=== PATIENT | male | born 1945 | race Caucasian/White ===

== ENCOUNTER → 2022-09-12 11:20 | Outpatient (BNVA) | payer MEDICARE, SELFPAY | PROVIDERS: PCP Internal Medicine; Visit Provider Urology | DX: Z13.89 Encounter for screening for other disorder (principal) ==

== ENCOUNTER → 2022-12-13 12:55 | Outpatient (BNVA) | payer MEDICARE, SELFPAY | PROVIDERS: PCP Internal Medicine; Visit Provider Urology | DX: N40.1 Benign prostatic hyperplasia with lower urinary tract symptoms (principal); R97.20 Elevated prostate specific antigen [PSA] | CPT/HCPCS: Q3014 ==

== ENCOUNTER 2023-06-13 11:50 | Outpatient (AMB) | payer MEDICARE, SELFPAY ==
--- NOTE | 2023-06-13 11:54 | A.OFFVIS_ITS ---
Intake Intake Visit Reasons: 6m/PSA(set) Intake Note: Patient is Present for Follow Up PSA/PVR Urology Medication: Finasteride Antibiotic Allergies: Erythromycin Blood Thinners:Xarelto Pharmacy: [place] PVR: 396 Allergies Alpha 1 Pernell- Quinazolines Adverse Reaction (Mild, Verified 06/13/23 12:00) Migraine Beta-Blockers (Beta-Adrenergic Bloc Adverse Reaction (Mild, Verified 06/13/23 12:00) Migraine tamsulosin Adverse Reaction (Unknown, Verified 06/13/23 12:00) headache Erythromycin Allergy (Unknown, Uncoded 06/13/23 12:00) Unknown Medication List - Last Reconciled 06/13/23 by Carlos Mishra MD atorvastatin 40 mg PO DAILY diltiazem HCl 240 mg PO DAILY finasteride 5 mg PO DAILY 90 days ketoconazole 2% topical Q OTHER DAY levothyroxine 50 mcg PO DAILY rivaroxaban (Xarelto) 20 mg PO DAILY sennosides (senna) 17.2 mg PO DAILY PRN sulfamethoxazole-trimethoprim 800-160 mg (Bactrim DS) 1 tab PO bid 5 days HPI HPI Comments History of Present Illness Details Josh is a pleasant male. He is a patient of Dr. To. He is seen for the following urologic conditions - lower urinary tract symptoms - elevated PSA PVR over 300 UA today positive nitrates, positive leuks - will treat for UTI Needs follow-up with cystoscopy Significant PSA dropped with finasteride Finasteride M.W.F Six month follow-up PSA Elevated PSA and lower urinary tract symptoms Prior TURP with good effect for urinary symptoms Previously had weakness of stream incomplete emptying Laboratories - 03/31 7.3, 11/30 2.8, 06/02 2.3 Previously PSA run in 4-6 range [facility] Medical History (Updated 06/13/23 @ 12:22 by Carlos Mishra MD) Elevated PSA BPH loc w urin obs/LUTS Incomplete emptying of bladder Chronic UTI (urinary tract infection) Infective urethritis Left lower quadrant pain Right lower quadrant pain Review of Systems Const Denies chills and Denies fever(s) Card Reports no additional complaints and Denies syncope Resp Denies cough GI Denies abdominal pain and Denies heartburn Reports as per HPI and Denies change in libido Neuro Denies syncope Psych Denies change in libido Endo Denies change in libido Physical Exam Const General: cooperative, healthy appearing, comfortable and no acute distress Orientation/consciousness: patient oriented x3 HEENT Face and sinus: Yes normal facial exam Mouth: moist mucous membranes Neck Neck: Yes normal visual inspection, Yes full ROM and Yes trachea midline Chest Chest palpation & inspection: normal inspection of the chest Resp Effort & Inspection: normal respiratory effort, able to speak in complete sentences and no respiratory distress GI Inspection: Yes normal to inspection Back/Spine/Pelvis Cervical Spine: normal cervical lordosis Thoracic/Lumbar Spine: thoracic and lumbar spine normal to inspection Skin General skin exam: no rashes or lesions noted Neuro General: patient oriented x3, gait normal, tone normal and moves all extremities Extrem General: Yes normal to inspection and Yes capillary refill normal Office Procedures Post Void Residual Post Residual Void Post Void Residual (PVR): 396 [id number]-Vuia Void Residual by ultrasound Results AMB Urinalysis, Automated UA Leukoctes 15 Bienvenido/uL Last Edit by Stefany Mendiola [facility] on 06/13/23 12:15 UA Nitrite Positive Last Edit by Stefany Mendiola [facility] on 06/13/23 12:15 UA Urobilinogen 0.2 mg/dL Last Edit by Stefany Mendiola [facility] on 06/13/23 12:1 5 UA Protein 0 mg/dL Last Edit by Stefany Mendiola [facility] on 06/13/23 12:15 UA pH 6.5 Last Edit by Stefany Mendiola [facility] on 06/13/23 12:15 UA Blood 0 Rishi/uL Last Edit by Stefany Mendiola [facility] on 06/13/23 12:15 UA Specific [place] 1.015 Last Edit by Stefany Mendiola [facility] on 06/13/23 12: 15 UA Ketone Negative Last Edit by Stefany Mendiola [facility] on 06/13/23 12:15 UA Bilirubin 0 mg/dL Last Edit by Stefany Mendiola [facility] on 06/13/23 12:15 UA Glucose 0 mg/dL Last Edit by Stefany Mendiola [facility] on 06/13/23 12:15 Assessment & Plan Assessment & Plan (1) Chronic UTI (urinary tract infection): Code(s): N39.0 - Urinary tract infection, site not specified (2) BPH loc w urin obs/LUTS: Code(s): N40.1 - Benign prostatic hyperplasia with lower urinary tract symptoms (3) Elevated PSA: Code(s): R97.20 - Elevated prostate specific antigen [PSA] Plan Check cystoscopy Orders: Orders AMB Post Void Residual by ultrasound Today N40.1 - Benign prostatic hyperplasia with lower urinary tract symptoms Urine Culture Today N39.0 - Urinary tract infection, site not specified AMB Urinalysis Automated Today Z13.9 - Encounter for screening, unspecified Medications: New sulfamethoxazole-trimethoprim 800-160 mg (Bactrim DS) 1 tab PO bid 10 tabs 0RF 5 days N39.0 - Urinary tract infection, site not specified Patient Instructions: Imaging studies, laboratory and physical exam results were discussed and reviewed in detail. No major barriers to patient understanding were identified. An opportunity to ask questions regarding the treatment plan was provided. All questions were answered. The patient expressed understanding and agreement with the above treatment plan. The patient is aware they should contact our office by phone for worsening of their current condition or the appearance of new urologic symptoms. Compliance is encouraged with any medications and followup testing that is ordered. It is a privilege to participate in the urologic care of your patient. If you have any questions or concerns regarding treatment for the above conditions, or other urologic issues, please do not hesitate to contact me. The office telephone contact is [phone]. This note is constructed using voice recognition software. While every effort has been made to ensure accuracy transcription coordinator errors may have been included. Yours sincerely, Dr Carlos Mishra MD, [facility] - Urology Providers of Expert, Compassionate Care for the Genitourinary System Coding Level of Care Code Est Pt Level 4 (53932) Diagnoses Chronic UTI (urinary tract infection) N39.0 BPH loc w urin obs/LUTS N40.1 Elevated PSA R97.20 CPT Codes Post Residual Void - PVR CPT Code: 96077-Zjfu Void Residual by ultrasound ([id number])
== END 2023-06-13 12:24 | disposition home or self-care (01) ==
PROVIDERS: PCP Internal Medicine; Visit Provider Urology
DX: N39.0 Urinary tract infection, site not specified (principal); N40.1 Benign prostatic hyperplasia with lower urinary tract symptoms; R97.20 Elevated prostate specific antigen [PSA]; Z13.9 Encounter for screening, unspecified
CPT/HCPCS: 99214

== ENCOUNTER 2023-06-13 11:50 | Outpatient (REF) | payer MEDICARE, SELFPAY | END 2023-06-13 11:51 | disposition home or self-care (01) | LOC: HO.LAB 11:50 | PROVIDERS: Visit Provider Urology | DX: N39.0 Urinary tract infection, site not specified (principal); N40.1 Benign prostatic hyperplasia with lower urinary tract symptoms; N13.8 Other obstructive and reflux uropathy; R97.20 Elevated prostate specific antigen [PSA] | CPT/HCPCS: 51798; 81003; 87086; 99212 ==

== ENCOUNTER 2023-07-31 11:04 | Outpatient (REF) | payer MEDICARE, SELFPAY | END 2023-07-31 11:05 | disposition home or self-care (01) | LOC: HO.LAB 11:04 | PROVIDERS: PCP Internal Medicine; Visit Provider Urology | DX: N39.0 Urinary tract infection, site not specified (principal); R33.9 Retention of urine, unspecified; N40.1 Benign prostatic hyperplasia with lower urinary tract symptoms | CPT/HCPCS: 52000; 81003; 87086; 87088; 87186; 99212 ==

== ENCOUNTER 2023-07-31 11:04 | Outpatient (AMB) | payer MEDICARE, SELFPAY ==
--- NOTE | 2023-07-31 11:10 | MHC.OFFVIS ---
Intake Intake Visit Reasons: cysto Intake Note: Patient is Present for Cystoscopy Urology Med: Finasteride, Antibiotic Allergy: Erythromycin Blood Thinner: Xarelto URO- G Disposable Cystoscope lot: [id number] exp: 02/21/25 Allergies Alpha 1 Pernell- Quinazolines Adverse Reaction (Mild, Verified 06/13/23 12:00) Migraine Beta-Blockers (Beta-Adrenergic Bloc Adverse Reaction (Mild, Verified 06/13/23 12:00) Migraine tamsulosin Adverse Reaction (Unknown, Verified 06/13/23 12:00) headache Erythromycin Allergy (Unknown, Uncoded 06/13/23 12:00) Unknown HPI HPI Comments History of Present Illness Details Josh is a pleasant male. He is a patient of Dr. To. He is seen for the following urologic conditions - lower urinary tract symptoms - elevated PSA Maintaining high PVR with chronic infection Cystoscopy today with significant regrowth on right side prostate Dilated bladder Recommend repeat GreenLight. Will need clearance from Dr To regarding Xarelto. Significant PSA dropped with finasteride Finasteride M.W.F Elevated PSA and lower urinary tract symptoms Prior TURP with good effect for urinary symptoms Previously had weakness of stream incomplete emptying Laboratories - 03/31 7.3, 11/30 2.8, 06/02 2.3 Previously PSA run in 4-6 range [facility] Medical History (Updated 07/31/23 @ 12:07 by Carlos Mishra MD) Elevated PSA BPH loc w urin obs/LUTS Incomplete emptying of bladder Chronic UTI (urinary tract infection) Infective urethritis Left lower quadrant pain Right lower quadrant pain Review of Systems Const Denies chills and Denies fever(s) Card Reports no additional complaints and Denies syncope Resp Denies cough GI Denies abdominal pain and Denies heartburn Reports as per HPI and Denies change in libido Neuro Denies syncope Psych Denies change in libido Endo Denies change in libido Physical Exam Const General: cooperative, healthy appearing, comfortable and no acute distress Orientation/consciousness: patient oriented x3 HEENT Face and sinus: Yes normal facial exam Mouth: moist mucous membranes Neck Neck: Yes normal visual inspection, Yes full ROM and Yes trachea midline Chest Chest palpation & inspection: normal inspection of the chest Resp Effort & Inspection: normal respiratory effort, able to speak in complete sentences and no respiratory distress GI Inspection: Yes normal to inspection Back/Spine/Pelvis Cervical Spine: normal cervical lordosis Thoracic/Lumbar Spine: thoracic and lumbar spine normal to inspection Skin General skin exam: no rashes or lesions noted Neuro General: patient oriented x3, gait normal, tone normal and moves all extremities Extrem General: Yes normal to inspection and Yes capillary refill normal Office Procedures Cystoscopy Consent Discussed risk and benefit or proposed procedure with the patient. Information consent for procedure given to the patient. Discussed technical aspects, risks, benefits and alternatives in full. Addressed all of the patient's questions and concerns regarding the procedure. The patient demonstrated knowledge and understanding. They wish to proceed with this procedure. Preparation The patient was prepped in the usual manner. A monument letterer was present and in the room. Genitalia was prepped with betadine solution in a sterile manner. Lidocaine Jelly 2% was placed into the urethra and 16Fr flexible Olympus cystoscope was inserted into the meatus after adequate lubrication. Cystoscopy Consent Discussed risk and benefit or proposed procedure with the patient. Information consent for procedure given to the patient. Discussed technical aspects, risks, benefits and alternatives in full. Addressed all of the patient's questions and concerns regarding the procedure. The patient demonstrated knowledge and understanding. They wish to proceed with this procedure. Preparation The patient was prepped in the usual manner. A monument letterer was present and in the room. Genitalia was prepped with betadine solution in a sterile manner. Lidocaine Jelly 2% was placed into the urethra and 16Fr flexible Olympus cystoscope was inserted into the meatus after adequate lubrication. Procedure Meatus circumcised Urethra anterior posterior urethra normal Prostatic Urethra regrowth right lobe Bladder examination with retroflexion of cystoscope Bladder Orifices normal shape and position Bladder Capacity medium Trabeculations - Cellule Formation - Diverticulum Formation - Mucosal Erythema - Bladder Tumor - 85412-Rivxiaoxam DISPOSABLE SCOPE URO-G FLEXIBLE SCOPE Procedure code (CPT) selection complete Office Meds lidocaine HCl 2 % mucosal jelly in applicator Performing Provider: Carlos Mishra MD Performing Location: [facility] Administered by: SUKHWINDER Mora on 07/31/23 11:29 Dose Route Admin Location Dispensed Lot Number Expiration Date ND Manager Medicare Marketing 10 mL intra-urethral 10 mL nitrofurantoin monohydrate/macrocrystals 100 mg capsule Performing Provider: Carlos Mishra MD Performing Location: [facility] Administered by: SUKHWINDER Mora on 07/31/23 11:29 Dose Route Admin Location Dispensed Lot Number Expiration Date NDC Manager Medicare Marketing 100 mg PO 1 cap naproxen 500 mg tablet Performing Provider: Carlos Mishra MD Performing [facility] Administered by: SUKHWINDER Mora on 07/31/23 11:29 Dose Route Admin Location Dispensed Lot Number Expiration Date NDC Manager Medicare Marketing 500 mg PO 1 tab Results AMB Urinalysis, Automated UA Leukoctes 0 Bienvenido/uL Last Edit by SUKHWINDER Mora on 07/31/23 11:24 UA Nitrite Positive Last Edit by SUKHWINDER Mora on 07/31/23 11:24 UA Urobilinogen 0.2 mg/dL Last Edit by SUKHWINDER Mora on 07/31/23 11:24 UA Protein 0 mg/dL Last Edit by SUKHWINDER Mora on 07/31/23 11:24 UA pH 6.0 Last Edit by SUKHWINDER Mora on 07/31/23 11:24 UA Blood 0 Rishi/uL Last Edit by Stefany Mendiola Rajinder on 07/31/23 11:24 UA Specific [place] 1.015 Last Edit by SUKHWINDER Mora on 07/31/23 11:24 UA Ketone Negative Last Edit by SUKHWINDER Mora on 07/31/23 11:24 UA Bilirubin 0 mg/dL Last Edit by SUKHWINDER Mora on 07/31/23 11:24 UA Glucose 0 mg/dL Last Edit by SUKHWINDER Mora on 07/31/23 11:24 Results Reviewed Results Reviewed: Laboratory Last Values Urine pH (Auto) 6.0 07/31/23 11:12 Specific [place] (Auto) 1.015 07/31/23 11:12 Urine Protein (Auto) 0 mg/dL 07/31/23 11:12 Glucose (UA)(Auto) 0 mg/dL 07/31/23 11:12 Urine Ketones (Auto) Negative 07/31/23 11:12 Urine Blood (Auto) 0 Rishi/uL 07/31/23 11:12 Urine Nitrite (Auto) Positive 07/31/23 11:12 Urine Bilirubin (Auto) 0 mg/dL 07/31/23 11:12 Urine Urobilinogen (Auto) 0.2 mg/dL 07/31/23 11:12 Leukocyte Esterase (Auto) 0 Bienvenido/uL 07/31/23 11:12 Assessment & Plan Assessment & Plan (1) BPH loc w urin obs/LUTS: Code(s): N40.1 - Benign prostatic hyperplasia with lower urinary tract symptoms (2) Incomplete emptying of bladder: Code(s): R33.9 - Retention of urine, unspecified Plan Risks, benefits and alternatives to therapy were discussed. These include but are not limited to infection, bleeding, damage to local organs and tissues, need for further interventions. Anesthetic risks regarding cardiac arrhythmia, blood clots, and potential mortality were discussed. The patient understands the typical recovery time and the outpatient nature of the procedure. After consideration of these risks the patient gives full informed consent and they wish to move ahead with the procedure. Diagnosis: Recurrent BPH Procedure: GreenLight laser Side: Antibiotics: Levaquin 500 mg Anesthesia: LMA Estimated Time: 60 minutes Clearance Needed: PAT Protocol Cardiac yes Pulmonary - - check with primary care Dr To. On Xarelto. May need Lovenox bridge Special Equipment: GreenLight laser Reps: Agility Orders: Orders AMB Urinalysis Automated 07/31/23 Z13.9 - Encounter for screening, unspecified AMB Cystoscopy 07/31/23 N40.1 - Benign prostatic hyperplasia with lower urinary tract symptoms Urine Culture 07/31/23 N39.0 - Urinary tract infection, site not specified AMB Cystoscopy 07/31/23 R33.9 - Retention of urine, unspecified Medications: New lidocaine HCl 2% 10 mL intra-urethral ONCE 10 mL 0RF R33.9 - Retention of urine, unspecified Discontinued sulfamethoxazole-trimethoprim 800-160 mg Discontinued Reason: Patient Completed Course 1 tab PO bid 5 days 10 tabs 0RF N39.0 - Urinary tract infection, site not specified Patient Instructions: Imaging studies, laboratory and physical exam results were discussed and reviewed in detail. No major barriers to patient understanding were identified. An opportunity to ask questions regarding the treatment plan was provided. All questions were answered. The patient expressed understanding and agreement with the above treatment plan. The patient is aware they should contact our office by phone for worsening of their current condition or the appearance of new urologic symptoms. Compliance is encouraged with any medications and followup testing that is ordered. It is a privilege to participate in the urologic care of your patient. If you have any questions or concerns regarding treatment for the above conditions, or other urologic issues, please do not hesitate to contact me. The office telephone contact is [phone]. This note is constructed using voice recognition software. While every effort has been made to ensure accuracy ibm bpm developer errors may have been included. Yours sincerely, Dr Carlos Mishra MD, [facility] - Urology Providers of Expert, Compassionate Care for the Genitourinary System Coding Level of Care Code Est Pt Level 4 (48550) Diagnoses BPH loc w urin obs/LUTS N40.1 Incomplete emptying of bladder R33.9 CPT Codes Cystoscopy - CPT: 12655-Hxbonqqvmr ([id number])
== END 2023-07-31 12:06 | disposition home or self-care (01) ==
PROVIDERS: PCP Internal Medicine; Visit Provider Urology
DX: N40.1 Benign prostatic hyperplasia with lower urinary tract symptoms (principal); Z13.9 Encounter for screening, unspecified
CPT/HCPCS: 52000; 99214

== ENCOUNTER 2023-10-05 13:43 | Outpatient (AMB) | payer MEDICARE, SELFPAY ==
--- NOTE | 2023-10-05 13:44 | A.OFFVIS_ITS ---
Intake Intake Visit Reasons: H&P Greenlight Intake Note: Patient is Present for Telephone Follow Up H&P GreenLight Urology Med: Finasteride Antibiotic Allergy:Erythromycin Blood Thinner: Xarelto Allergies erythromycin base Allergy (Unknown, Verified 10/15/23 11:20) Unknown Alpha 1 Pernell- Quinazolines Adverse Reaction (Mild, Verified 10/15/23 11:20) Migraine Beta-Blockers (Beta-Adrenergic Bloc Adverse Reaction (Mild, Verified 10/15/23 11:20) Migraine tamsulosin Adverse Reaction (Unknown, Verified 10/15/23 11:20) headache HPI HPI Comments History of Present Illness Details Josh is a pleasant male. He is a patient of Dr. To. He is seen for the following urologic conditions - lower urinary tract symptoms - elevated PSA Telemedicine Evaluation 15 min Consultation Doximity Bert Video attempted Has clinic from Dr. To regarding use of anticoagulation Will use bridging Questions answered regarding procedures Maintaining high PVR with chronic infection Cystoscopy with significant regrowth on right side prostate Dilated bladder Recommend repeat GreenLight. Significant PSA dropped with finasteride Finasteride M,W,F Elevated PSA and lower urinary tract symptoms Prior TURP with good effect for urinary symptoms Previously had weakness of stream incomplete emptying Laboratories - 03/31 7.3, 11/30 2.8, 06/02 2.3 Previously PSA run in 4-6 range PFSH Medical History Mitral regurgitation Myocardial infarction GERD (gastroesophageal reflux disease) Arthritis Asthma Head and neck cancer CVA (cerebral vascular accident) On anticoagulant therapy Atrial fibrillation Elevated cholesterol HTN (hypertension) Elevated PSA BPH loc w urin obs/LUTS Incomplete emptying of bladder Chronic UTI (urinary tract infection) Infective urethritis Surgical History Hx of transurethral resection of prostate Hx of heart artery stent H/O colonoscopy Hx of mitral valve repair Social History Comment: stinging Patient Tobacco Use Status: Never used Tobacco Review of Systems Const All systems reviewed & are unremarkable except as noted in HPI and below Reports no additional complaints Resp Reports no additional complaints GI Reports no additional complaints Reports as per HPI Musc Reports no additional complaints Physical Exam Telemedicine evaluation Appropriate responses Regular breathing rate and rhythm HEENT Head: Yes normal to inspection Ears: hearing grossly normal bilaterally Eyes General: appearance normal, both eyes and all related structures Neck Neck: Yes normal visual inspection Chest Chest palpation & inspection: normal inspection of the chest Resp Effort & Inspection: normal respiratory effort and able to speak in complete sentences Assessment & Plan Assessment & Plan (1) Incomplete emptying of bladder: Code(s): R33.9 - Retention of urine, unspecified (2) BPH loc w urin obs/LUTS: Code(s): N40.1 - Benign prostatic hyperplasia with lower urinary tract symptoms (3) Elevated PSA: Code(s): R97.20 - Elevated prostate specific antigen [PSA] Plan Planned procedure Patient Instructions: Imaging studies, laboratory and physical exam results were discussed and reviewed in detail. No major barriers to patient understanding were identified. An opportunity to ask questions regarding the treatment plan was provided. All questions were answered. The patient expressed understanding and agreement with the above treatment plan. The patient is aware they should contact our office by phone for worsening of their current condition or the appearance of new urologic symptoms. Compliance is encouraged with any medications and followup testing that is ordered. It is a privilege to participate in the urologic care of your patient. If you have any questions or concerns regarding treatment for the above conditions, or other urologic issues, please do not hesitate to contact me. The office telephone contact is [phone]. This note is constructed using voice recognition software. While every effort has been made to ensure accuracy installation service representative errors may have been included. Yours sincerely, Dr Carlos Mishra MD, [facility] - Urology Providers of Expert, Compassionate Care for the Genitourinary System Telehealth Telehealth Location of provider rendering services: practice address Location of patient: address on file Patient Identification confirmed using: Name, : Yes Telehealth method: video Patient verbally consented to treatment: Yes Patient verbally consented to billing insurance company: Yes Patient informed of any privacy concerns related to visit: Yes Coding Level of Care Code Tele Est Pt Level 3 (97155) Diagnoses Incomplete emptying of bladder R33.9 BPH loc w urin obs/LUTS N40.1 Elevated PSA R97.20
== END 2023-10-05 14:02 | disposition home or self-care (01) ==
LOC: HO.HUSH 13:43
PROVIDERS: PCP Internal Medicine; Visit Provider Urology
DX: R33.9 Retention of urine, unspecified (principal); N40.1 Benign prostatic hyperplasia with lower urinary tract symptoms; R97.20 Elevated prostate specific antigen [PSA]
CPT/HCPCS: 99213

== ENCOUNTER → 2023-10-05 13:43 | Outpatient (BNVA) | payer MEDICARE, SELFPAY | PROVIDERS: PCP Internal Medicine; Visit Provider Urology ==

== ENCOUNTER 2023-10-15 10:58 | Day surgery (SDC) | payer MEDICARE, SELFPAY ==
[2023-10-11 13:33] VITALS: BMI 25.3
--- NOTE | 2023-10-12 10:55 | HO.ANESPROP2 ---
Documented by User: Brina Hopkins NP 10/12/23 11:44 HPI - Anesthesia Eval Consult details Narrative: 78yo M for Laser Ablation Prostate w/[facility] Card[facility] cleared. Last office visit 08/2023 Xarelto for afib. Lovenox bridge. CAD with NC s/p stent. 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 Some vocal cord paralysis PMFSH Active Problems Active Problems: All Active Problems (Updated 10/11/23 @ 11:50 by Anne Ch RN) Incomplete emptying of bladder (Acute) Chronic UTI (urinary tract infection) (Acute) BPH loc w urin obs/LUTS (Acute) Elevated PSA (Acute) Past Medical History Medical History Mitral regurgitation Myocardial infarction GERD (gastroesophageal reflux disease) Arthritis Asthma Head and neck cancer CVA (cerebral vascular accident) On anticoagulant therapy Atrial fibrillation Elevated cholesterol HTN (hypertension) Elevated PSA BPH loc w urin obs/LUTS Incomplete emptying of bladder Chronic UTI (urinary tract infection) Infective urethritis Surgical History Surgical History Hx of transurethral resection of prostate Hx of heart artery stent H/O colonoscopy Hx of mitral valve repair Social History Social History Patient Tobacco Use Status: Never used Tobacco Use of substances other than those prescribed or required for medical reasons: No Are you DNR?: No Advance Directives: No Advance Directives Information Provided: Yes Meds Allergies Allergy/AdvReac Type Severity Reaction Status Date / Time erythromycin base Allergy Unknown Unknown Verified 10/15/23 11:20 Alpha 1 Pernell- Quinazolines AdvReac Mild Migraine Verified 10/15/23 11:20 Beta-Blockers AdvReac Mild Migraine Verified 10/15/23 11:20 (Beta-Adrenergic Bloc tamsulosin AdvReac Unknown headache Verified 10/15/23 11:20 Home Medications Medication Instructions Recorded Confirmed Last Taken Type atorvastatin 40 mg tablet 40 mg PO DAILY 09/12/22 10/11/23 Unknown History diltiazem HCl 240 mg 240 mg PO DAILY 09/12/22 10/11/23 Unknown History capsule,extended release 24 hr rivaroxaban 20 mg tablet (Xarelto) 20 mg PO DAILY 09/12/22 10/11/23 Unknown History levothyroxine 50 mcg capsule 50 mcg PO DAILY 12/13/22 10/11/23 Unknown History ketoconazole 2 % shampoo 1 appl topical Q OTHER DAY 06/13/23 10/11/23 Unknown History Exam Height,Weight and Vital Signs: Height 6 ft 2 in Weight 89.358 kg Pertinent Lab Results Pertinent Lab Results: CBC and CMP 04/2023 from outside facility WNL Narrative Narrative: EKG 08/2023 afib per cardiology note ECHO 09/2022 1. Nml LV function 2. Overall LV systolic function is low-nml with EF 50-55% 3. Cannot assess diastolic function d/t afib 4. Paradoxical septal motion c/w post-op status 5. LA severely dilated 6. No evidence of aortic stenosis 7. Mil-mod MR present 8. Evidence of mitral valve repair 9. No evidence of pulmo htn 10. 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 No change c/w 05/2018 Assessment and Plan Assessment Anesthesia Assessment: Chart Reviewed Documented by User: Nesha Herbert MD 10/15/23 14:05 HPI - Anesthesia Eval Consult details Narrative: 78yo M for Laser Ablation Prostate w/[facility] Cardiac cleared. Last office visit 08/2023 Xarelto for afib. Lovenox bridge. CAD with NC s/p stent. 2015. Never any chest pain. 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 Some vocal cord paralysis PMFSH Active Problems Active Problems: All Active Problems (Updated 10/15/23 @ 12:39 by Nesah Herbert MD) Incomplete emptying of bladder (Acute) Chronic UTI (urinary tract infection) (Acute) BPH loc w urin obs/LUTS (Acute) Elevated PSA (Acute) Past Medical History Medical History Mitral regurgitation Myocardial infarction GERD (gastroesophageal reflux disease) Arthritis Asthma Head and neck cancer CVA (cerebral vascular accident) On anticoagulant therapy Atrial fibrillation Elevated cholesterol HTN (hypertension) Elevated PSA BPH loc w urin obs/LUTS Incomplete emptying of bladder Chronic UTI (urinary tract infection) Infective urethritis Family History Family history of problems with anesthesia: No Surgical History Surgical History Hx of transurethral resection of prostate Hx of heart artery stent H/O colonoscopy Hx of mitral valve repair History of Problems with Anesthesia: No Social History Social History Patient Tobacco Use Status: Never used Tobacco Use of substances other than those prescribed or required for medical reasons: No Are you DNR?: No Advance Directives: No Advance Directives Information Provided: Yes Meds Allergies Allergy/AdvReac Type Severity Reaction Status Date / Time erythromycin base Allergy Unknown Unknown Verified 10/15/23 11:20 Alpha 1 Pernell- Quinazolines AdvReac Mild Migraine Verified 10/15/23 11:20 Beta-Blockers AdvReac Mild Migraine Verified 10/15/23 11:20 (Beta-Adrenergic Bloc tamsulosin AdvReac Unknown headache Verified 10/15/23 11:20 Home Medications Medication Instructions Recorded Confirmed Last Taken Type atorvastatin 40 mg tablet 40 mg PO DAILY 09/12/22 10/11/23 Unknown History diltiazem HCl 240 mg 240 mg PO DAILY 09/12/22 10/11/23 Unknown History capsule,extended release 24 hr rivaroxaban 20 mg tablet (Xarelto) 20 mg PO DAILY 09/12/22 10/11/23 Unknown History levothyroxine 50 mcg capsule 50 mcg PO DAILY 12/13/22 10/11/23 Unknown History ketoconazole 2 % shampoo 1 appl topical Q OTHER DAY 06/13/23 10/11/23 Unknown History Exam Height,Weight and Vital Signs: Height 6 ft 2 in Weight 89.358 kg Vital Signs Temp Pulse Resp BP Pulse Ox O2 Del Method 98.0 F 54 16 127/66 98 Room Air 10/15/23 11:39 10/15/23 11:39 10/15/23 11:39 10/15/23 11:39 10/15/23 11:39 10/15/23 11:39 Airway Mallampati Class: III (H/o head and neck cancer s/p radiation and chemotherapy) TM Dist: >3cm Neck ROM: Limited Loose/Missing/Broken Teeth: No (Caps intact. Denies broken, loose, missing teeth) Heart: Irregularly irregular Lungs: CTAB Assessment and Plan Assessment Anesthesia Assessment: Anesthesia Plan Discussed and Chart Reviewed Final Anesthetic Review Family History of Problems with Anesthesia: No History of Problems with Anesthesia: No NPO: Yes ASA Class: III Final Preanesthetic Review: No Changes in Pt Med Stat, Meds/Allgs Chart Reviewed, Consent Obtained/Reviewed and Anes Risks/Benef Reviewed Patient Risk: Intermediate Procedure Risk: Low Assessment/Block/Sedation in SS: Assess/Block/Sedation-SS Anesthetic Plan Anesthetic Plan: GA Disposition: Standard PACU
[2023-10-15 11:21] VITALS: BMI 25.9
[2023-10-15 11:39] VITALS: BP 127/66; PULSE 54; RESP 16; TEMP 36.7; O2SAT 98
[2023-10-15] MEDS: Lactated Ringers 1,000 ML 100 ML IVCONT (11:45)
--- NOTE | 2023-10-15 12:26 | P.OP_ITS ---
Operative Note Operative Note Date of Service: 10/15/23 Narrative: PreOperative Diagnosis: [] Post Operative Diagnosis: [] Procedure: [] Surgeon: Dr Carlos Mishra Anesthesia: [] Indications for procedure: [] Procedure: After informed consent was verified the patient was brought to the operating room and placed in a supine position. Anesthesia was administered per protocol. The patient was prepped and draped in a sterile fashion. Safety pause time- out was performed. Antibiotics being given. Pathology: [] Drains: []
--- NOTE | 2023-10-15 12:27 | MHC.SHP ---
Pre-Procedural Eval Section A - 24 Hr Update-Section A only Date of Service: 10/15/23 The patient is an INPATIENT: No Changes since office visit: No Cold of Flu in the past 2 weeks, No New Medical Problems, No Changes in Medication and No Patient answered all questions The patient has been examined within 24 hours of the surgical procedure. The History & Physical has been completed within 30 days and I have reviewed it.: Yes Section B - Complete if H&P > 30 days Chief Complaint: Elevated prostate specific antigen [PSA] Details of Present Illness: BPH with outlet obstruction Allergies: Allergies Allergy/AdvReac Type Severity Reaction Status Date / Time erythromycin base Allergy Unknown Unknown Verified 10/15/23 11:20 Alpha 1 Pernell- Quinazolines AdvReac Mild Migraine Verified 10/15/23 11:20 Beta-Blockers AdvReac Mild Migraine Verified 10/15/23 11:20 (Beta-Adrenergic Bloc tamsulosin AdvReac Unknown headache Verified 10/15/23 11:20 Plan Diagnosis/Plan: Unchanged (GreenLight laser prostatectomy) I have reviewed the history and physical and performed a pertinent physical examination on my patient. No changes have occurred unless specified. Time Spent With Patient Time: Total time managing care of this patient today ____ minutes.
[2023-10-15 14:10] VITALS: BP 92/50; PULSE 53; RESP 14; TEMP 36.4; O2SAT 95
--- NOTE | 2023-10-15 14:12 | P.OP_ITS ---
Operative Note Operative Note Date of Service: 10/15/23 Narrative: PreOperative Diagnosis: Bladder outlet obstruction Post Operative Diagnosis: Bladder outlet obstruction Procedure: GreenLight Laser Enucleation of the prostate CPT 06549 Surgeon: Dr Carlos Mishra Anesthesia: General History of bladder outlet obstruction. Treated with alpha-eliecer and other medications prior prostate procedure. Recurrence of symptoms. On cystoscopy in office has recurrent tissue particularly left lateral lobe impingement. Recommendation for prostate procedure with laser enucleation of prostate. Risks and benefits have been discussed. Focus was placed on development of retrograde ejaculation which is a normal part of this procedure. Procedure: After informed consent was verified the patient was brought to the operating room and placed in a supine position. Anesthesia was administered per protocol. Patient was placed in modified dorsal lithotomy position and prepped and draped in a sterile fashion. Safety pause time-out was confirmed. Antibiotics have been given. A Twenty-four Danish laser cystoscope was inserted per urethra. No abnormalities were found of the anterior and bulbar urethra. The bladder was examined and both ureteric orifices were seen in their normal positions away from the area of interest. Evidence of prior procedure. Median lobe had been resected. There was impingement from left lateral lobe as well as right lateral lobe regrowth. Using a GreenLight laser with settings of 80 w incisions were made at the 5 and 7 o'clock position. The incisions were taken down from the bladder neck down to the level of the veru. These were gradually deepened in order to define the l ateral aspects of the median lobe area. Once clearly defined they will also extended in the lateral directions in order to create a deep groove. Focus initially on left lateral lobe impingementlaser power increased to 120 W. Starting with the patient's left lateral lobe. First the 05:00 o'clock groove was further developed. This was moved in the lateral direction to undermine the tissue on the lateral side running from the bladder neck to the prostate apex. Focus was then placed on the laser at the 1 o'clock position to developing a secondary groove down to the level of bladder fibers. The creation of a second deep groove defined a segment of intervening tissue similar to a slice of orange. At the apex of the prostate the 2 grooves were linked the us releasing the intervening tissue. This tissue was then removed with a combination of enucleation and ablation working from the apex toward the bladder neck. A similar procedure was repeated on the patient's right-hand side however there was on the approximately 1/3 as much tissue. The only differences being the position of the lateral groove at he 7 'oclock positioin and the secondary groove at the 11 o'clock position, Otherwise the procedure was developed in a mirror fashion. After the majority of tissue had been debulked remnant tissue was ablated with the side fire laser and the curve of the prostate followed up each side wall clearly defining the anterior remnant strip that remained between the 11 and 1 o'clock positions. When this was had been completed debris and pieces of prostate were removed from the bladder with irrigation. Both ureteric orifices were reviewed again in shown to be patent in away from any areas of energy damage. The apical area was reviewed in any stray ooze was controlled. A 22 Danish 30 cc balloon Kennedy catheter was placed over a stylet into the bladder. Clear efflux was obtained upopn irrigation with a Melly piston syringe. 30 cc was placed in the balloon and gentle traction was placed. A snap was used to hold tension on the catheter to control bleeding during patient moved and transported. A drainage bag was placed. Once transportation is complete to the PACU the snap will be removed. The patient tolerated the procedure well, he was extubated in the operating and transferred in a stable condition to the recovery area. Total Power 195 kW Lasing time 27:23 Pathology: Prostate tissue Drains: Kennedy catheter
[2023-10-15 14:15] VITALS: BP 96/50; PULSE 58; RESP 14; O2SAT 96
[2023-10-15 14:20] VITALS: BP 102/57; PULSE 51; RESP 14; O2SAT 96
[2023-10-15 14:25] VITALS: BP 102/55; PULSE 52; RESP 16; O2SAT 96
[2023-10-15 14:40] VITALS: BP 111/62; PULSE 53; RESP 16; TEMP 36.4; O2SAT 97
[2023-10-15] MEDS: Acetaminophen 325 MG TABLET 975 MG PO (14:41)
== END 2023-10-15 15:35 | disposition home or self-care (01) ==
PROVIDERS: PCP Internal Medicine; Visit Provider Urology
PROC: (CPT 52648; principal; 2023-10-15 12:30)
DX: N40.1 Benign prostatic hyperplasia with lower urinary tract symptoms (principal); N13.8 Other obstructive and reflux uropathy; R97.20 Elevated prostate specific antigen [PSA]; R33.9 Retention of urine, unspecified; N39.0 Urinary tract infection, site not specified; Z79.899 Other long term (current) drug therapy
CPT/HCPCS: 52649; 88305; J1956; J2704; J3010

== ENCOUNTER → 2023-10-15 10:58 | Outpatient (BNV) | payer MEDICARE, SELFPAY | PROVIDERS: PCP Internal Medicine; Visit Provider Urology | DX: N40.1 Benign prostatic hyperplasia with lower urinary tract symptoms (principal); R97.20 Elevated prostate specific antigen [PSA] | CPT/HCPCS: 52649 ==

== ENCOUNTER → 2023-10-17 09:35 | Outpatient (BNVA) | payer MEDICARE, SELFPAY | PROVIDERS: PCP Internal Medicine; Visit Provider Urology | DX: N40.1 Benign prostatic hyperplasia with lower urinary tract symptoms (principal); R33.9 Retention of urine, unspecified | CPT/HCPCS: 51700; 51798 ==

== ENCOUNTER 2023-11-23 12:57 | Outpatient (AMB) | payer MEDICARE, SELFPAY ==
--- NOTE | 2023-11-23 12:28 | A.OFFVIS_ITS ---
Intake Intake Visit Reasons: S/P Greenlight Intake Note: Patient presents today for a follow-up on S/P Greenlight Meds- None Allergies to Antibiotic- Macrobid, Erythromycin Blood Thinner- Xarelto Post Void Residual: 132ml Acid Loader Required: No Accompanied by: Self / Same As Patient Allergies nitrofurantoin [From Macrobid] Allergy (Severe, Verified 11/23/23 13:36) Shortness of Breath erythromycin base Allergy (Unknown, Verified 11/23/23 13:36) Unknown Alpha 1 Pernell- Quinazolines Adverse Reaction (Mild, Verified 11/23/23 13:36) Migraine Beta-Blockers (Beta-Adrenergic Bloc Adverse Reaction (Mild, Verified 11/23/23 13:36) Migraine tamsulosin Adverse Reaction (Unknown, Verified 11/23/23 13:36) headache Medication List - Last Reconciled 11/23/23 by Carlos Mishra MD atorvastatin 40 mg PO DAILY diltiazem HCl 240 mg PO DAILY finasteride 5 mg PO DAILY 90 days ketoconazole 2% 1 appl topical Q OTHER DAY levothyroxine 50 mcg PO DAILY rivaroxaban (Xarelto) 20 mg PO DAILY sulfamethoxazole-trimethoprim 800-160 mg (Bactrim DS) 1 tab PO BID 14 days HPI HPI Comments History of Present Illness Details Josh is a pleasant male. He is a patient of Dr. To. He is seen for the following urologic conditions - lower urinary tract symptoms - elevated PSA Follow-up from GreenLight laser procedure Significant fall in PVR to under 150 cc Leukocyte positive urine GreenLight laser 10/03 for recurrent right-sided tissue Likely Gram-positive infection Treat with Bactrim for 2 weeks He will call if persistent cloudiness Three month follow-up lab work Elevated PSA and lower urinary tract symptoms Prior TURP with good effect for urinary symptoms Previously had weakness of stream incomplete emptying Laboratories - 03/31 7.3, 11/30 2.8, 06/02 2.3 Previously PSA run in 4-6 range PFSH Medical History Mitral regurgitation Myocardial infarction GERD (gastroesophageal reflux disease) Arthritis Asthma Head and neck cancer CVA (cerebral vascular accident) On anticoagulant therapy Atrial fibrillation Elevated cholesterol HTN (hypertension) Elevated PSA BPH loc w urin obs/LUTS Incomplete emptying of bladder Chronic UTI (urinary tract infection) Infective urethritis Surgical History Hx of transurethral resection of prostate Hx of heart artery stent H/O colonoscopy Hx of mitral valve repair Social History Comment: stinging Patient Tobacco Use Status: Never used Tobacco Review of Systems Const Denies chills and Denies fever(s) Card Reports no additional complaints and Denies syncope Resp Denies cough GI Denies abdominal pain and Denies heartburn Reports as per HPI and Denies change in libido Neuro Denies syncope Psych Denies change in libido Endo Denies change in libido Physical Exam Const General: cooperative, healthy appearing, comfortable and no acute distress Orientation/consciousness: patient oriented x3 HEENT Face and sinus: Yes normal facial exam Mouth: moist mucous membranes Neck Neck: Yes normal visual inspection, Yes full ROM and Yes trachea midline Chest Chest palpation & inspection: normal inspection of the chest Resp Effort & Inspection: normal respiratory effort, able to speak in complete sentences and no respiratory distress GI Inspection: Yes normal to inspection Back/Spine/Pelvis Cervical Spine: normal cervical lordosis Thoracic/Lumbar Spine: thoracic and lumbar spine normal to inspection Skin General skin exam: no rashes or lesions noted Neuro General: patient oriented x3, gait normal, tone normal and moves all extremities Extrem General: Yes normal to inspection and Yes capillary refill normal Office Procedures Post Void Residual Post Residual Void Post Void Residual (PVR): 132 [id number] Void Residual by ultrasound Results AMB Urinalysis, Automated UA Leukoctes 500 Bienvenido/uL Last Edit by Britt Beyer CMA on 11/23/23 13 :40 UA Nitrite Negative Last Edit by Britt Beyer CMA on 11/23/23 13: 40 UA Urobilinogen 0.2 mg/dL Last Edit by Britt Beyer CMA on 4 13:40 UA Protein 100 mg/dL Last Edit by Britt Beyer [facility] on 11/23/23 13: 40 UA pH 6.0 Last Edit by Britt Beyer, [facility] on 11/23/23 13:40 UA Blood 80 Rishi/uL Last Edit by Britt Beyer, [facility] on 11/23/23 13:40 UA Specific [place] 1.015 Last Edit by Britt Beyer, [facility] on 13:40 UA Ketone Negative Last Edit by Britt Beyer, [facility] on 11/23/23 13:4 0 UA Bilirubin 0 mg/dL Last Edit by Britt Beyerralph Beyer [facility] on 11/23/23 13: 40 UA Glucose 0 mg/dL Last Edit by Britt Beyer [facility] on 11/23/23 13:40 Results Reviewed Results Reviewed: Laboratory Last Values Urine pH (Auto) 6.0 11/23/23 13:37 Specific [place] (Auto) 1.015 11/23/23 13:37 Urine Protein (Auto) 100 mg/dL 11/23/23 13:37 Glucose (UA)(Auto) 0 mg/dL 11/23/23 13:37 Urine Ketones (Auto) Negative 11/23/23 13:37 Urine Blood (Auto) 80 Rishi/uL 11/23/23 13:37 Urine Nitrite (Auto) Negative 11/23/23 13:37 Urine Bilirubin (Auto) 0 mg/dL 11/23/23 13:37 Urine Urobilinogen (Auto) 0.2 mg/dL 11/23/23 13:37 Leukocyte Esterase (Auto) 500 Bienvenido/uL 11/23/23 13:37 Assessment & Plan Assessment & Plan (1) Incomplete emptying of bladder: Code(s): R33.9 - Retention of urine, unspecified (2) Chronic UTI (urinary tract infection): Code(s): N39.0 - Urinary tract infection, site not specified Plan Three-month follow-up lab work Orders: Orders Prostate Specific Antigen 3 Months N40.1 - Benign prostatic hyperplasia with lower urinary tract symptoms AMB Post Void Residual by ultrasound Today R33.9 - Retention of urine, unspecified AMB Urinalysis Automated Today R33.9 - Retention of urine, unspecified Medications: New sulfamethoxazole-trimethoprim 800-160 mg (Bactrim DS) 1 tab PO BID 14 days 28 tabs 0RF N39.0 - Urinary tract infection, site not specified Patient Instructions: Imaging studies, laboratory and physical exam results were discussed and reviewed in detail. No major barriers to patient understanding were identified. An opportunity to ask questions regarding the treatment plan was provided. All questions were answered. The patient expressed understanding and agreement with the above treatment plan. The patient is aware they should contact our office by phone for worsening of their current condition or the appearance of new urologic symptoms. Compliance is encouraged with any medications and followup testing that is ordered. It is a privilege to participate in the urologic care of your patient. If you have any questions or concerns regarding treatment for the above conditions, or other urologic issues, please do not hesitate to contact me. The office telephone contact is [phone]. This note is constructed using voice recognition software. While every effort has been made to ensure accuracy stove polisher errors may have been included. Yours sincerely, Dr Carlos Mishra MD, MICHELLE [facility] - Urology Providers of Expert, Compassionate Care for the Genitourinary System Coding Level of Care Code Est Pt Level 4 (93182) Diagnoses Incomplete emptying of bladder R33.9 Chronic UTI (urinary tract infection) N39.0 CPT Codes Post Residual Void - PVR CPT Code: 23588-Emxo Void Residual by ultrasound ([id number])
== END 2023-11-23 13:52 | disposition home or self-care (01) ==
PROVIDERS: PCP Internal Medicine; Visit Provider Urology
DX: R33.9 Retention of urine, unspecified (principal); N39.0 Urinary tract infection, site not specified
CPT/HCPCS: 99024

== ENCOUNTER → 2023-11-23 12:57 | Outpatient (BNVA) | payer MEDICARE, SELFPAY | PROVIDERS: PCP Internal Medicine; Visit Provider Urology | DX: N40.1 Benign prostatic hyperplasia with lower urinary tract symptoms (principal); N13.8 Other obstructive and reflux uropathy; N39.0 Urinary tract infection, site not specified; R97.20 Elevated prostate specific antigen [PSA]; R33.9 Retention of urine, unspecified | CPT/HCPCS: 51798; 81003; 99212 ==

== ENCOUNTER 2024-02-22 10:19 | Outpatient (REF) | payer MEDICARE, SELFPAY | END 2024-02-22 10:20 | disposition home or self-care (01) | LOC: HO.LAB 10:19 | PROVIDERS: PCP Internal Medicine; Visit Provider Urology | DX: Z13.9 Encounter for screening, unspecified (principal); N39.0 Urinary tract infection, site not specified | CPT/HCPCS: 51798; 81003; 87086; 87088; 87186; 99212 ==

== ENCOUNTER 2024-02-22 10:19 | Outpatient (AMB) | payer MEDICARE, SELFPAY ==
--- NOTE | 2024-02-22 10:51 | MHC.OFFVIS ---
Intake Visit Reasons: 3m/PSA/UA/PVR(set) Intake Note: Patient is Present for PVR/PSA Urology Med: Finasteride, Bactrim Daily Antibiotic Allergy: Macrobid, Erythromycin Blood Thinner: Xarelto Last PVR: 132 Todays PVR: 445 Hydraulic Billet Maker Required: No Allergies nitrofurantoin [From Macrobid] Allergy (Severe, Verified 02/22/24 10:52) Shortness of Breath erythromycin base Allergy (Unknown, Verified 02/22/24 10:52) Unknown Alpha 1 Prenell- Quinazolines Adverse Reaction (Mild, Verified 02/22/24 10:52) Migraine Beta-Blockers (Beta-Adrenergic Bloc Adverse Reaction (Mild, Verified 02/22/24 10:52) Migraine tamsulosin Adverse Reaction (Unknown, Verified 02/22/24 10:52) headache HPI Comments Details: Josh is a pleasant male. He is a patient of Dr. To. 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 Trial betreyesechol Has been on Bactrim for suppression since has incomplete bladder emptying with persistent colonization Repeat culture today Elevated PSA and lower urinary tract symptoms Prior TURP with good effect for urinary symptoms Previously had weakness of stream incomplete emptying Laboratories - 03/31 7.3, 11/30 2.8, 06/02 2.3 Previously PSA run in 4-6 range PFSH Medical History Mitral regurgitation Myocardial infarction GERD (gastroesophageal reflux disease) Arthritis Asthma Head and neck cancer CVA (cerebral vascular accident) On anticoagulant therapy Atrial fibrillation Elevated cholesterol HTN (hypertension) Elevated PSA BPH loc w urin obs/LUTS Incomplete emptying of bladder Chronic UTI (urinary tract infection) Infective urethritis Surgical History Hx of transurethral resection of prostate Hx of heart artery stent H/O colonoscopy Hx of mitral valve repair Social History Comment: stinging Patient Tobacco Use Status: Never used Tobacco Review of Systems Const Denies chills and Denies fever(s) Card Reports no additional complaints and Denies syncope Resp Denies cough GI Denies abdominal pain and Denies heartburn Reports as per HPI and Denies change in libido Neuro Denies syncope Psych Denies change in libido Endo Denies change in libido Physical Exam Const General: cooperative, healthy appearing, comfortable and no acute distress Orientation/consciousness: patient oriented x3 HEENT Face and sinus: Yes normal facial exam Mouth: moist mucous membranes Neck Neck: Yes normal visual inspection, Yes full ROM and Yes trachea midline Chest Chest palpation & inspection: normal inspection of the chest Resp Effort & Inspection: normal respiratory effort, able to speak in complete sentences and no respiratory distress GI Inspection: Yes normal to inspection Back/Spine/Pelvis Cervical Spine: normal cervical lordosis Thoracic/Lumbar Spine: thoracic and lumbar spine normal to inspection Skin General skin exam: no rashes or lesions noted Neuro General: patient oriented x3, gait normal, tone normal and moves all extremities Extrem General: Yes normal to inspection and Yes capillary refill normal Office Procedures Post Void Residual Post Residual Void Post Void Residual (PVR): 445 [id number]-Vmcf Void Residual by ultrasound Results AMB Urinalysis, Automated UA Leukoctes 500 Bienvenido/uL Last Edit by Stefany Mendiola Rajinder on 02/22/24 11:14 UA Nitrite Negative Last Edit by Stefany Mendiola Rajinder on 02/22/24 11:14 UA Urobilinogen 0.2 mg/dL Last Edit by Stefany Mendiola Rajinder on 02/22/24 11:14 UA Protein 15 mg/dL Last Edit by Stefany Mendiola [facility] on 02/22/24 11:14 UA pH 6.0 Last Edit by Stefany Mendiola Rajinder on 02/22/24 11:14 UA Blood 10 Rishi/uL Last Edit by Stefany Mendiola [facility] on 02/22/24 11:14 UA Specific [place] 1.015 Last Edit by SUKHWINDER Mora on 02/22/24 11:14 UA Ketone Negative Last Edit by Stefany Mendiola Rajinder on 02/22/24 11:14 UA Bilirubin 0 mg/dL Last Edit by Stefany Mendiola [facility] on 02/22/24 11:14 UA Glucose 0 mg/dL Last Edit by Stefany Mendiola Rajinder on 02/22/24 11:14 Results Reviewed Results Reviewed: Laboratory Last Values Urine pH (Auto) 6.0 02/22/24 10:52 Specific [place] (Auto) 1.015 02/22/24 10:52 Urine Protein (Auto) 15 mg/dL 02/22/24 10:52 Glucose (UA)(Auto) 0 mg/dL 02/22/24 10:52 Urine Ketones (Auto) Negative 02/22/24 10:52 Urine Blood (Auto) 10 Rishi/uL 02/22/24 10:52 Urine Nitrite (Auto) Negative 02/22/24 10:52 Urine Bilirubin (Auto) 0 mg/dL 02/22/24 10:52 Urine Urobilinogen (Auto) 0.2 mg/dL 02/22/24 10:52 Leukocyte Esterase (Auto) 500 Bienvenido/uL 02/22/24 10:52 Assessment & Plan Assessment & Plan (1) Chronic UTI (urinary tract infection): Code(s): N39.0 - Urinary tract infection, site not specified Category: Medical (2) Elevated PSA: Code(s): R97.20 - Elevated prostate specific antigen [PSA] Category: Medical Plan Three-month follow-up UA and PVR Orders: Orders AMB Post Void Residual by ultrasound 02/22/24 R33.9 - Retention of urine, unspecified Urine Culture 02/22/24 N39.0 - Urinary tract infection, site not specified AMB Urinalysis Automated 02/22/24 Z13.9 - Encounter for screening, unspecified Medications: New bethanechol chloride 50 mg PO BID 60 tabs 2RF 30 days R33.9 - Retention of urine, unspecified, N39.0 - Urinary tract infection, site not specified Patient Instructions: Imaging studies, laboratory and physical exam results were discussed and reviewed in detail. No major barriers to patient understanding were identified. An opportunity to ask questions regarding the treatment plan was provided. All questions were answered. The patient expressed understanding and agreement with the above treatment plan. The patient is aware they should contact our office by phone for worsening of their current condition or the appearance of new urologic symptoms. Compliance is encouraged with any medications and followup testing that is ordered. It is a privilege to participate in the urologic care of your patient. If you have any questions or concerns regarding treatment for the above conditions, or other urologic issues, please do not hesitate to contact me. The office telephone contact is [phone]. This note is constructed using voice recognition software. While every effort has been made to ensure accuracy video production coordinator errors may have been included. Yours sincerely, Dr Carlos Mishra MD, MICHELLE [facility] - Urology Providers of Expert, Compassionate Care for the Genitourinary System Coding Level of Care Code Est Pt Level 3 (66273) Diagnoses Chronic UTI (urinary tract infection) N39.0 Elevated PSA R97.20 CPT Codes Post Residual Void - PVR CPT Code: 64776-Fmzc Void Residual by ultrasound ([id number])
== END 2024-02-22 11:33 | disposition home or self-care (01) ==
PROVIDERS: PCP Internal Medicine; Visit Provider Urology
DX: N39.0 Urinary tract infection, site not specified (principal); R97.20 Elevated prostate specific antigen [PSA]
CPT/HCPCS: 99213

== ENCOUNTER → 2024-05-23 10:19 | Outpatient (BNVA) | payer MEDICARE, SELFPAY | PROVIDERS: PCP Internal Medicine; Visit Provider Urology | DX: N39.0 Urinary tract infection, site not specified (principal); N40.1 Benign prostatic hyperplasia with lower urinary tract symptoms; R97.20 Elevated prostate specific antigen [PSA]; N13.8 Other obstructive and reflux uropathy; R33.8 Other retention of urine; Z79.899 Other long term (current) drug therapy | CPT/HCPCS: 51798; 81003; 99212 ==

== ENCOUNTER → 2024-06-26 09:37 | Outpatient (BNVA) | payer MEDICARE, SELFPAY | PROVIDERS: PCP Internal Medicine; Visit Provider Urology | DX: N40.1 Benign prostatic hyperplasia with lower urinary tract symptoms (principal); R33.8 Other retention of urine | CPT/HCPCS: 51700; 51798 ==

== ENCOUNTER 2024-08-19 13:48 | Outpatient (AMB) | payer MEDICARE, SELFPAY ==
--- NOTE | 2024-08-19 13:49 | A.OFFVIS_ITS ---
Intake Visit Reasons: 6 week follow up-[facility] ER Intake Note: Patient is present for 6W F/U ([facility] ER) Urology Medication:BACTRIM,BETHANECHOL CHLORIDE,FINASTERIDE Antibiotic Allergy:ERYTHROMYCIN,TAMSULOSIN Blood Thinner:RIVAROXABAN Assistant Gm Of Content & Delivery Required: No Allergies nitrofurantoin [From Macrobid] Allergy (Severe, Verified 08/19/24 13:53) Shortness of Breath erythromycin base Allergy (Unknown, Verified 08/19/24 13:53) Unknown Alpha 1 Pernell- Quinazolines Adverse Reaction (Mild, Verified 08/19/24 13:53) Migraine Beta-Blockers (Beta-Adrenergic Bloc Adverse Reaction (Mild, Verified 08/19/24 13:53) Migraine tamsulosin Adverse Reaction (Unknown, Verified 08/19/24 13:53) headache HPI Comments Details: Josh is a pleasant male. He is a patient of Dr. To. He is seen for the following urologic conditions - lower urinary tract symptoms - elevated PSA Has UTI today Had remained on bethanechol and finasteride for incomplete bladder emptying Elevated PSA and lower urinary tract symptoms Prior TURP with good effect for urinary symptoms - 10/03 GreenLight laser for recurrent tissue Previously had weakness of stream incomplete emptying Laboratories - 03/31 7.3, 11/30 2.8, 06/02 2.3 Previously PSA run in 4-6 range PFSH Medical History Mitral regurgitation Myocardial infarction GERD (gastroesophageal reflux disease) Arthritis Asthma Head and neck cancer CVA (cerebral vascular accident) On anticoagulant therapy Atrial fibrillation Elevated cholesterol HTN (hypertension) Elevated PSA BPH loc w urin obs/LUTS Incomplete emptying of bladder Chronic UTI (urinary tract infection) Infective urethritis Surgical History Hx of transurethral resection of prostate Hx of heart artery stent H/O colonoscopy Hx of mitral valve repair Social History Comment: stinging Patient Tobacco Use Status: Never used Tobacco Results AMB Urinalysis, Automated UA Leukoctes 500 Bienvenido/uL Last Edit by DIMPLE Talbot on 08/19/24 14:10 UA Nitrite Positive Last Edit by DIMPLE Talbot on 08/19/24 14:10 UA Urobilinogen 0.2 mg/dL Last Edit by DIMPLE Talbot on 08/19/24 14:1 0 UA Protein 15 mg/dL Last Edit by DIMPLE Talbot on 08/19/24 14:10 UA pH 7.0 Last Edit by DIMPLE Talbot on 08/19/24 14:10 UA Blood 0 Rishi/uL Last Edit by DIMPLE Talbot on 08/19/24 14:10 UA Specific [place] 1.015 Last Edit by DIMPLE Talbot on 08/19/24 14: 10 UA Ketone Negative Last Edit by DIMPLE Talbot on 08/19/24 14:10 UA Bilirubin 0 mg/dL Last Edit by DIMPLE Talbot on 08/19/24 14:10 UA Glucose 0 mg/dL Last Edit by DIMPLE Talbot on 08/19/24 14:10 Assessment & Plan Assessment & Plan (1) BPH loc w urin obs/LUTS: Code(s): N40.1 - Benign prostatic hyperplasia with lower urinary tract symptoms Category: Medical (2) Chronic UTI (urinary tract infection): Code(s): N39.0 - Urinary tract infection, site not specified Category: Medical Plan UTI treatment Six-month follow-up Orders: Orders AMB Urinalysis Automated Today Z13.9 - Encounter for screening, unspecified Urine Culture Today N39.0 - Urinary tract infection, site not specified Medications: New levofloxacin 500 mg PO DAILY 7 days 7 tabs 0RF N39.0 - Urinary tract infection, site not specified Patient Instructions: Imaging studies, laboratory and physical exam results were discussed and reviewed in detail. No major barriers to patient understanding were identified. An opportunity to ask questions regarding the treatment plan was provided. All questions were answered. The patient expressed understanding and agreement with the above treatment plan. The patient is aware they should contact our office by phone for worsening of their current condition or the appearance of new urologic symptoms. Compliance is encouraged with any medications and followup testing that is ordered. It is a privilege to participate in the urologic care of your patient. If you have any questions or concerns regarding treatment for the above conditions, or other urologic issues, please do not hesitate to contact me. The office telephone contact is [phone]. This note is constructed using voice recognition software. While every effort has been made to ensure accuracy physician credentialing specialist errors may have been included. Yours sincerely, Dr Carlos Mishra MD, MICHELLE [facility] - Urology Providers of Expert, Compassionate Care for the Genitourinary System Coding Level of Care Code Est Pt Level 4 (48196) Diagnoses BPH loc w urin obs/LUTS N40.1 Chronic UTI (urinary tract infection) N39.0
--- OUTSIDE RECORDS SUMMARY | 2024-08-20 21:49 | XMS_ITS | Continuity of Care Document ---
Author Organization [facility] Address [address] [place] [address]- Care Team Providers Care Hand Weaver Name Role Phone Carmelo To MD Primary Care Physician [phone] Encounter [facility] Date(s): 05/05/24 - 07/21/24 [facility] [address] [place] [id number] Discharge Disposition: A-D/C Home Attending Physician: Quinton De MD Admitting Physician: Quinton De MD Referring Physician: Carmelo To MD Allergies, Adverse Reactions, Alerts Substance Reaction Severity Status erythromycin Active nitrofurantoin Active beta blockers Active Medications bethanechol 50 mg oral tablet 1 tablet = 50 mg, By Mouth, 2 times a day, 0 Refills, Maintenance, 05/30/24 6:43:00 EDT, Partial fill upon patient request if the prescription is for a schedule II opioid drug. Start Date: 05/30/24 Status: Ordered cyclobenzaprine 10 mg oral tablet 10 mg, By Mouth, 3 times a day, PRN, # 30 tablet, Refills 0, Tot. Refills 0, Maintenance, Spasm, 06/03/24 15:04:00 EDT, Route to Pharmacy Electronically, [facility], Partial fill upon patient request if the prescription is for a schedule... Start Date: 06/03/24 Status: Ordered diltiazem 240 mg/24 hours oral capsule, extended release 240 mg, 1, capsule, By Mouth, Daily, Refills 0, Maintenance, 05/30/24 6:42:00 EDT, Partial fill upon patient request if the prescription is for a schedule II opioid drug. Start Date: 05/30/24 Status: Ordered finasteride 5 mg oral tablet 1 tablet = 5 mg, By Mouth, Every Sunday, Sunday and Sunday, 0 Refills, Maintenance, 05/30/24 6:44:00 EDT, Partial fill upon patient request if the prescription is for a schedule II opioid drug. Start Date: 05/30/24 Status: Ordered gabapentin 100 mg oral capsule 100 mg, By Mouth, Every 8 hours, # 50 capsule, Refills 0, Tot. Refills 0, Maintenance, 06/03/24 15:04:00 EDT, Route to Pharmacy Electronically, [facility], Partial fill upon patient request if the prescription is for a schedule II opioid... Start Date: 06/03/24 Status: Ordered levothyroxine 75 mcg (0.075 mg) oral tablet 1 tablet = 75 mcg, By Mouth, Daily, # 90 tablet, 1 Refills, Maintenance, 12/19/22 13:51:00 EDT, Tablet, [id number], If insurance does not cover 90 day, please dispense #30 with 11 refills.Partial fill upon patient request if the prescripti... Start Date: 12/19/22 Status: Ordered Lipitor 40 mg oral tablet 1 tablet = 40 mg, By Mouth, Daily at bedtime, # 30 tablet, 0 Refills, Maintenance, 10/05/15 11:54:11, Tablet, 1 tablet By Mouth Daily at bedtime Start Date: 10/05/15 Status: Ordered oxyCODONE 5 mg oral tablet 5 mg, By Mouth, Every 4 hours, PRN, # 10 tablet, Refills 0, Tot. Refills 0, Maintenance, Pain , Moderate, 06/03/24 15:05:00 EDT, Route to Pharmacy Electronically, [facility], Partial fill upon patient request if the prescription is for a... Start Date: 06/03/24 Status: Ordered Senna 8.6 mg oral tablet 8.6 mg, 1, tablet, By Mouth, Daily, # 25 tablet, Refills 0, Tot. Refills 0, Maintenance, 06/03/24 15:04:00 EDT, Route to Pharmacy Electronically, [facility] Tablet, Partial fill upon patient request if the prescription is for a schedule... Start Date: 06/03/24 Status: Ordered Tylenol 325 mg oral tablet 975 mg, By Mouth, Every 6 hours, PRN, # 50 tablet, Refills 0, Tot. Refills 0, Maintenance, Pain , Mild, 06/03/24 15:04:00 EDT, Route to Pharmacy Electronically, [facility], Partial fillupon patient request if the prescription is for a s... Start Date: 06/03/24 Status: Ordered Xarelto 20 mg oral tablet 1 tablet = 20 mg, By Mouth, Daily before dinner, 0 Refills, Maintenance, 08/02/21 19:08:00 EST, Partial fill upon patient request if the prescription is for a schedule II opioid drug. Start Date: 08/02/21 Status: Ordered Problem List Condition Confirmation Course Effective Dates Status Health St atus Informant Atrial Fibrillation and Flutter Confirmed 06/04/12 Active Benign Essential Hypertension Confirmed 06/04/12 Active Laryngeal cancer Confirmed Active Mitral Valve Disorders Confirmed 06/04/12 Active Vital Signs Most recent to oldest [Reference Range]: 1 Height 186.2 cm (05/21/24 10:09 AM) Weight 92.3 kg (05/21/24 10:09 AM) Oxygen Saturation [94-100 %] 99 % (05/21/24 10:09 AM) Pulse Rate [55-90 bpm] 79 bpm (05/21/24 10:09 AM) Body Mass Index [18.5-24.99 kg/m2] 26.62 kg/m2 *H* (05/21/24 10:09 AM) Blood Pressure [90-138/55-84 mm Hg] 119/ 61mm Hg (05/21/24 10:09 AM) Temperature [96.8-100.4 DegF] 98.0 DegF (05/21/24 10:09 AM) Mode of Delivery (Oxygen) Room air (05/21/24 10:09 AM) Blood pressure sites Arm, right (05/21/24 10:09 AM) Temperature Route Oral (05/21/24 10:09 AM) Dry Weight 92.3 kg (05/21/24 10:09 AM) Weight Obtained Via Standing scale (05/21/24 10:09 AM) Dry Weight Obtained Via Standing scale (05/21/24 10:09 AM) Patient Care team information Care Team Personnel Name: Mary Cruz Position: [facility] RN Member Role: Primary Care Nurse Name: Pamela Stauffer RN Position: [facility] RN Member Role: Primary Care Nurse Name: Carmelo To MD Position: [facility] Outreach Member Role: PCP Address: Address: [address] [place] [id number]- Care Team Related Persons Name: SINGH FELDMANQUELYN Address: home [address] [place] [address]
--- OUTSIDE RECORDS SUMMARY | 2024-08-20 21:49 | XMS_ITS | Continuity of Care Document ---
Author Organization [facility] Address [address] [place], [place] [address]dennis ballard, [address] [place] [address]- Care Team Providers Care Carpenter Repair Name Role Phone Yousuf ADAME, Carmelo Ayala Primary Care Physician [place] [facility] Date(s): 07/09/24 - 08/08/24 [facility] [address] [place] [address] Drive [address] [place], [place] [address] Encounter Type: Triage Allergies, Adverse Reactions, Alerts Substance Criticality Severity Reaction Reaction Severity Status erythromycin Active nitrofurantoin Activ e beta blockers Active Medications bethanechol 50 mg oral tablet 1 tablet = 50 mg, By Mouth, 2 times a day, 0 Refills, Maintenance, 05/30/24 6:43:00 AM EDT, Partial fill upon patient request if the prescription is for a schedule II opioid drug. Start Date: 05/30/24 Status: Ordered Repeat number: 1 cyclobenzaprine 10 mg oral tablet 10 mg, By Mouth, 3 times a day, PRN, # 30 tablet, Refills 0, Tot. Refills 0, Maintenance, Spasm, 06/03/24 3:04:00 PM EDT, Route to Pharmacy Electronically, [facility], Partial fill upon patient request if the prescription is for a schedule II opioid drug., 188, cm, 06/02/24 14:53:00 EDT, Height, 92.3, kg, 05/30/24 13:22:00 EDT, Dry Weight Start Date: 06/03/24 Status: Ordered Quantity: 30.0 Unit: tablet Repeat number: 1 diltiazem 240 mg/24 hours oral capsule, extended release 240 mg, 1, capsule, By Mouth, Daily, Refills 0, Maintenance, 05/30/24 6:42:00 AM EDT, Partial fill upon patient request if the prescription is for a schedule II opioid drug. Start Date: 05/30/24 Status: Ordered Repeat number: 1 finasteride 5 mg oral tablet 1 tablet = 5 mg, By Mouth, Every Sunday, Sunday and Sunday, 0 Refills, Maintenance, 05/30/24 6:44:00 AM EDT, Partial fill upon patient request if the prescription is for a schedule II opioid drug. Start Date: 05/30/24 Status: Ordered Repeat number: 1 gabapentin 100 mg oral capsule 100 mg, By Mouth, Every 8 hours, # 50 capsule, Refills 0, Tot. Refills 0, Maintenance, 06/03/24 3:04:00 PM EDT, Route to Pharmacy Electronically, [facility], Partial fill upon patient request if the prescription is for a schedule II opioid drug., 188, cm, 06/02/24 14:53:00 EDT, Height,92.3, kg, 05/30/24 13:22:00 EDT, Dry Weight Start Date: 06/03/24 Status: Ordered Quantity: 50.0 Unit: capsule Repeat number: 1 levothyroxine 75 mcg (0.075 mg) oral tablet 1 tablet = 75 mcg, By Mouth, Daily, # 90 tablet, 1 Refills, Maintenance, 12/19/22 1:51:00 PM EDT, Tablet, [facility], If insurance does not cover 90 day, please dispense #30 with 11 refills. Partial fill upon patient request if the prescription is for a schedule II opioid drug., 186.2, cm, 12/19/22 13:14:00 EDT, Height, 88.6, kg, 12/19/22 13:14:00 EDT, Dry Weight Start Date: 12/19/22 Status: Ordered Quantity: 90.0 Unit: tablet Repeat number: 2 Lipitor 40 mg oral tablet 1 tablet = 40 mg, By Mouth, Daily at bedtime, # 30 tablet, 0 Refills, Maintenance, 10/05/15 11:54:11AM EST, Tablet, [facility] Start Date: 10/05/15 Status: Ordered Quantity: 30.0 Unit: tablet Repeat number: 1 oxyCODONE 5 mg oral tablet 5 mg, By Mouth, Every 4 hours, PRN, # 10 tablet, Refills 0, Tot. Refills 0, Maintenance, Pain , Moderate, 06/03/24 3:05:00 PM EDT, Route to Pharmacy Electronically, [facility], Partial fill upon patient request if the prescription is for a schedule II opioid drug., 188, cm, 06/02/24 14:53:00 EDT, Height, 92.3, kg, 05/30/24 13:22:00 EDT, Dry Weight Start Date: 06/03/24 Status: Ordered Quantity: 10.0 Unit: tablet Repeat number: 1 Senna 8.6 mg oral tablet 8.6 mg, 1, tablet, By Mouth, Daily, # 25 tablet, Refills 0, Tot. Refills 0, Maintenance, 06/03/24 3:04:00 PM EDT, Route to Pharmacy Electronically, [facility] 3 Tablet, Partial fill upon patient request if the prescription is for a schedule II opioid drug., 188, cm, 06/02/24 14:53:00 EDT, Height, 92.3, kg, 05/30/24 13:22:00 EDT, Dry Weight Start Date: 06/03/24 Status: Ordered Quantity: 25.0 Unit: tablet Repeat number: 1 Tylenol 325 mg oral tablet 975 mg, By Mouth, Every 6 hours, PRN, # 50 tablet, Refills 0, Tot. Refills 0, Maintenance, Pain , Mild, 06/03/24 3:04:00 PM EDT, Route to Pharmacy Electronically, [facility] 3, Partial fill upon patient request if the prescription is for a schedule II opioid drug., 188, cm, 06/02/24 14:53:00 EDT, Height, 92.3, kg, 05/30/24 13:22:00 EDT, Dry Weight Start Date: 06/03/24 Status: Ordered Quantity: 50.0 Unit: tablet Repeat number: 1 Xarelto 20 mg oral tablet 1 tablet = 20 mg, By Mouth, Daily before dinner, 0 Refills, Maintenance, 08/02/21 7:08:00 PM EST, Partial fill upon patient request if the prescription is for a schedule II opioid drug. Start Date: 08/02/21 Status: Ordered Repeat number: 1 Problem List Condition Confirmation Course Effective Dates Status Health St atus Informant Atrial Fibrillation and Flutter Confirmed 06/04/12 Active Benign Essential Hypertension Confirmed 06/04/12 Active Laryngeal cancer Confirmed Active Mitral Valve Disorders Confirmed 06/04/12 Active Patient Care team information Care Team Personnel Name: Mary Crzu Position: [facility] Onco RN Member Role: Primary Care Nurse Name: Pamela Stauffer RN Position: [facility] RN Member Role: Primary Care Nurse Name: Carmelo To MD Position: [facility] Outreach Member Role: PCP Address: [address] [place] [address] Telecom: Care Team Related Persons Name: LENY FELDMAN Insurance Providers Guarantor name: SHERLY Health Plan Information #: 1 Payer: MEDICARE PART B OUTPT Member Number: NA Policy Number: NA Group Number: NA Health Plan Information #: 2 Payer: [employer]EX Member Number: NA Policy Number: NA Group Number: NA
--- OUTSIDE RECORDS SUMMARY | 2024-08-20 21:49 | XMS_ITS | Continuity of Care Document ---
Author Organization [facility] y Address [address] [place] [address] Shaye ballard, [address] [place] [address]- Care Team Providers Care Python Java Developer Name Role Phone Carmelo To MD Primary Care Physician [phone] Encounter [facility] Date(s): 07/25/24 - 08/01/24 [facility] [address] [place] [address] Drive [address] [place], [place] [id number] Attending Physician: Not on Staff, Attending Referring Physician: Carmelo To MD Encounter Type: Office Visit Allergies, Adverse Reactions, Alerts Substance Criticality Severity [...] 3:04:00 PM EDT, Route to Pharmacy Electronically, [facility], Partial fill upon patient request [...] 3:04:00 PM EDT, Route to Pharmacy Electronically, [facility], Partial fill upon patient [...] Refills, Maintenance, 12/19/22 1:51:00 PM EDT, Tablet, [id number], If insurance does not [...] 0 Refills, Maintenance, 10/05/15 11:54:11AM EST, Tablet, [facility] Start Date: 10/05/15 Status: Ordered Quantity: 30.0 Unit: tablet Repeat number: 1 oxyCODONE 5 mg oral tablet 5 mg, By Mouth, Every 4 hours, PRN, # 10 tablet, Refills 0, Tot. Refills 0, Maintenance, Pain , Moderate, 06/03/24 3:05:00 PM EDT, Route to Pharmacy Electronically, [facility], Partial fill upon patient request if [...] 3:04:00 PM EDT, Route to Pharmacy Electronically, [facility] Tablet, Partial fill upon patient request [...] 3:04:00 PM EDT, Route to Pharmacy Electronically, [facility], Partial fill upon patient request if [...] recent to oldest [Reference Range]: 1 Height 188 cm (07/25/24 11:17 AM) Weight 90 kg (07/25/24 11:17 AM) Body Mass Index [18.5-24.99 kg/m2] 25.46 kg/m2 *H* (07/25/24 11:17 AM) Patient Care team information Care Team Personnel Name: Mary Cruz Position: [facility] Onco RN Member Role: Primary Care Nurse Name: Pamela Stauffer RN Position: [facility] RN Member Role: Primary Care Nurse Name: Carmelo oT MD Position: [facility] Outreach Member Role: PCP Address: [address] [place] [address] Telecom: Care Team Related Persons Name: LENY FELDMAN Insurance Providers Guarantor name: SHERLY Health Plan Information #: 1 Payer: MEDICARE PART B OUTPT Member Number: [id number] Policy Number: NA Group Number: NA Health Plan Information #: 2 Payer: MEDEX Member Number: [id number] Policy Number: NA Group Number: NA
== END 2024-08-19 14:19 | disposition home or self-care (01) ==
PROVIDERS: PCP Internal Medicine; Visit Provider Urology
DX: N40.1 Benign prostatic hyperplasia with lower urinary tract symptoms (principal); N39.0 Urinary tract infection, site not specified; Z13.9 Encounter for screening, unspecified
CPT/HCPCS: 99214

== ENCOUNTER 2024-08-19 13:48 | Outpatient (REF) | payer MEDICARE, SELFPAY | END 2024-08-19 13:49 | disposition home or self-care (01) | LOC: HO.LAB 13:48 | PROVIDERS: PCP Internal Medicine; Visit Provider Urology | DX: N39.0 Urinary tract infection, site not specified (principal); B96.89 Other specified bacterial agents as the cause of diseases classified elsewhere; N40.1 Benign prostatic hyperplasia with lower urinary tract symptoms; Z13.9 Encounter for screening, unspecified | CPT/HCPCS: 81003; 87086; 87088; 87186; 99212 ==

== ENCOUNTER 2024-12-04 09:52 | Outpatient (AMB) | payer MEDICARE, SELFPAY ==
--- NOTE | 2024-12-04 10:00 | A.OFFVIS_ITS ---
Intake Visit Reasons: 6m/PVR Intake Note: Patient is present for 6M/PVR Urology Medication:FINASSTERIDE Antibiotic Allergy:NITROFURANTION,ERYTHROMYCIN Blood Thinner:RIVAROXABAN Todays PVR:380ML'S Infection Prevention Practitioner Required: No Allergies nitrofurantoin [From Macrobid] Allergy (Severe, Verified 12/04/24 10:02) Shortness of Breath erythromycin base Allergy (Unknown, Verified 12/04/24 10:02) Unknown Alpha 1 Pernell- Quinazolines Adverse Reaction (Mild, Verified 12/04/24 10:02) Migraine Beta-Blockers (Beta-Adrenergic Bloc Adverse Reaction (Mild, Verified 12/04/24 10:02) Migraine tamsulosin Adverse Reaction (Unknown, Verified 12/04/24 10:02) headache HPI Comments Details: Josh is a pleasant male. He is a patient of Dr. To. He is seen for the following urologic conditions - lower urinary tract symptoms - elevated PSA Urine clear today PVR 300 cc UA specific gravity 1.010 Doing a much better job with fluid intake Had remained on bethanechol and finasteride for incomplete bladder emptying Might benefit from InterStim placement Elevated PSA and lower urinary tract symptoms Prior TURP with good effect for urinary symptoms - 10/03 GreenLight laser for recurrent tissue Previously had weakness of stream incomplete emptying Laboratories - 03/31 7.3, 11/30 2.8, 06/02 2.3 Previously PSA run in 4-6 range PFSH Medical History Mitral regurgitation Myocardial infarction GERD (gastroesophageal reflux disease) Arthritis Asthma Head and neck cancer CVA (cerebral vascular accident) On anticoagulant therapy Atrial fibrillation Elevated cholesterol HTN (hypertension) Elevated PSA BPH loc w urin obs/LUTS Incomplete emptying of bladder Chronic UTI (urinary tract infection) Infective urethritis Surgical History Hx of transurethral resection of prostate Hx of heart artery stent H/O colonoscopy Hx of mitral valve repair Social History Comment: stinging Patient Tobacco Use Status: Never used Tobacco Review of Systems Const Denies chills and Denies fever(s) Card Reports no additional complaints and Denies syncope Resp Denies cough GI Denies abdominal pain and Denies heartburn Reports as per HPI and Denies change in libido Neuro Denies syncope Psych Denies change in libido Endo Denies change in libido Physical Exam Const General: cooperative, healthy appearing, comfortable and no acute distress Orientation/consciousness: patient oriented x3 HEENT Face and sinus: Yes normal facial exam Mouth: moist mucous membranes Neck Neck: Yes normal visual inspection, Yes full ROM and Yes trachea midline Chest Chest palpation & inspection: normal inspection of the chest Resp Effort & Inspection: normal respiratory effort, able to speak in complete sentences and no respiratory distress GI Inspection: Yes normal to inspection Back/Spine/Pelvis Cervical Spine: normal cervical lordosis Thoracic/Lumbar Spine: thoracic and lumbar spine normal to inspection Skin General skin exam: no rashes or lesions noted Neuro General: patient oriented x3, gait normal, tone normal and moves all extremities Extrem General: Yes normal to inspection and Yes capillary refill normal Office Procedures Post Void Residual Post Residual Void Post Void Residual (PVR): 380 [id number] Void Residual by ultrasound Results AMB Urinalysis, Automated UA Leukoctes 0 Bienvenido/uL Last Edit by DIMPLE Talbot on 12/04/24 10:13 UA Nitrite Negative Last Edit by DIMPLE Talbot on 12/04/24 10:13 UA Urobilinogen 3.5 mg/dL Last Edit by DIMPLE Talbot on 12/04/24 10:1 3 UA Protein 0 mg/dL Last Edit by DIMPLE Talbot on 12/04/24 10:13 UA pH 6.0 Last Edit by DIMPLE Talbot on 12/04/24 10:13 UA Blood 0 Rishi/uL Last Edit by DIMPLE Talbot on 12/04/24 10:13 UA Specific [place] 1.015 Last Edit by DIMPLE Talbot on 12/04/24 10: 13 UA Ketone Negative Last Edit by DIMPLE Talbot on 12/04/24 10:13 UA Bilirubin 0 mg/dL Last Edit by DIMPLE Talbot on 12/04/24 10:13 UA Glucose 0 mg/dL Last Edit by DIMPLE Talbot on 12/04/24 10:13 Results Reviewed Results Reviewed: Laboratory Last Values Urine pH (Auto) 6.0 12/04/24 10:12 Specific [place] (Auto) 1.015 12/04/24 10:12 Urine Protein (Auto) 0 mg/dL 12/04/24 10:12 Glucose (UA)(Auto) 0 mg/dL 12/04/24 10:12 Urine Ketones (Auto) Negative 12/04/24 10:12 Urine Blood (Auto) 0 Rishi/uL 12/04/24 10:12 Urine Nitrite (Auto) Negative 12/04/24 10:12 Urine Bilirubin (Auto) 0 mg/dL 12/04/24 10:12 Urine Urobilinogen (Auto) 3.5 mg/dL 12/04/24 10:12 Leukocyte Esterase (Auto) 0 Bienvenido/uL 12/04/24 10:12 Assessment & Plan Assessment & Plan (1) Chronic UTI (urinary tract infection): Code(s): N39.0 - Urinary tract infection, site not specified Category: Medical (2) BPH loc w urin obs/LUTS: Code(s): N40.1 - Benign prostatic hyperplasia with lower urinary tract symptoms Category: Medical (3) Incomplete emptying of bladder: Code(s): R33.9 - Retention of urine, unspecified Category: Medical Plan February follow-up Orders: Orders AMB Urinalysis Automated Today Z13.9 - Encounter for screening, unspecified Patient Instructions: This note is constructed using voice recognition software. While every effort has been made to ensure accuracy tufter hand errors may have been included. Imaging studies, laboratory and physical exam results were discussed and reviewed in detail. No major barriers to patient understanding were identified. An opportunity to ask questions regarding the treatment plan was provided. All questions were answered. The patient expressed understanding and agreement with the above treatment plan. The patient is aware they should contact our office by phone for worsening of their current condition or the appearance of new urologic symptoms. Compliance is encouraged with any medications and followup testing that is ordered. It is a privilege to participate in the urologic care of your patient. If you have any questions or concerns regarding treatment for the above conditions, or other urologic issues, please do not hesitate to contact me. The office telephone contact is [phone]. Sincerely, Dr Carlos Mishra MD, [facility] - Urology Compassionate Specialist Care for the Genitourinary System Coding Level of Care Code Est Pt Level 3 (21447) Diagnoses Chronic UTI (urinary tract infection) N39.0 BPH loc w urin obs/LUTS N40.1 Incomplete emptying of bladder R33.9 CPT Codes Post Residual Void - PVR CPT Code: 86245-Rrqu Void Residual by ultrasound ([id number])
== END 2024-12-04 10:34 | disposition home or self-care (01) ==
LOC: HO.HUSH 09:53
PROVIDERS: PCP Internal Medicine; Visit Provider Urology
DX: N39.0 Urinary tract infection, site not specified (principal); N40.1 Benign prostatic hyperplasia with lower urinary tract symptoms; R33.9 Retention of urine, unspecified; Z13.9 Encounter for screening, unspecified
CPT/HCPCS: 99213

== ENCOUNTER → 2024-12-04 09:52 | Outpatient (BNVA) | payer MEDICARE, SELFPAY | PROVIDERS: PCP Internal Medicine; Visit Provider Urology | DX: N40.1 Benign prostatic hyperplasia with lower urinary tract symptoms (principal); R33.8 Other retention of urine; N39.0 Urinary tract infection, site not specified | CPT/HCPCS: 51798; 81003; 99212 ==

== ENCOUNTER 2025-02-17 13:03 | Outpatient (REF) | payer MEDICARE, SELFPAY | END 2025-02-17 13:04 | disposition home or self-care (01) | LOC: HO.LAB 13:03 | PROVIDERS: PCP Internal Medicine; Visit Provider Urology | DX: N39.0 Urinary tract infection, site not specified (principal); N40.1 Benign prostatic hyperplasia with lower urinary tract symptoms | CPT/HCPCS: 81003; 87086; 87088; 87186; 99212 ==

== ENCOUNTER 2025-02-17 13:03 | Outpatient (AMB) | payer MEDICARE, SELFPAY ==
--- NOTE | 2025-02-17 13:10 | A.OFFVIS_ITS ---
Intake Visit Reasons: 3M/PVR/UA Intake Note: Patient is present for 3M/PVR/UA Urology Medication:FINASTERIDE,BETHANECHOL CHLORIDE Antibiotic Allergy:NITROFURANTION,ERYTHROMYCIN Blood Thinner:RIVAROXABAN Community Health Outreach Worker Required: No Allergies nitrofurantoin [From Macrobid] Allergy (Severe, Verified 02/17/25 13:11) Shortness of Breath erythromycin base Allergy (Unknown, Verified 02/17/25 13:11) Unknown Alpha 1 Pernell- Quinazolines Adverse Reaction (Mild, Verified 02/17/25 13:11) Migraine Beta-Blockers (Beta-Adrenergic Bloc Adverse Reaction (Mild, Verified 02/17/25 13:11) Migraine tamsulosin Adverse Reaction (Unknown, Verified 02/17/25 13:11) headache HPI Comments Details: Josh is a pleasant male. He is a patient of Dr. oT. He is seen for the following urologic conditions - lower urinary tract symptoms - elevated PSA PVR today 0 cc, prior 300 cc Has remain on combination finasteride bethanechol Did great job emptying his bladder by relaxing Elevated PSA and lower urinary tract symptoms Prior TURP with good effect for urinary symptoms - 10/03 GreenLight laser for recurrent tissue Previously had weakness of stream incomplete emptying Laboratories - 03/31 7.3, 11/30 2.8, 06/02 2.3 Previously PSA run in 4-6 range PFSH Medical History Mitral regurgitation Myocardial infarction GERD (gastroesophageal reflux disease) Arthritis Asthma Head and neck cancer CVA (cerebral vascular accident) On anticoagulant therapy Atrial fibrillation Elevated cholesterol HTN (hypertension) Elevated PSA BPH loc w urin obs/LUTS Incomplete emptying of bladder Chronic UTI (urinary tract infection) Infective urethritis Surgical History Hx of transurethral resection of prostate Hx of heart artery stent H/O colonoscopy Hx of mitral valve repair Social History Comment: stinging Patient Tobacco Use Status: Never used Tobacco Review of Systems Const Denies chills and Denies fever(s) Card Reports no additional complaints and Denies syncope Resp Denies cough GI Denies abdominal pain and Denies heartburn Reports as per HPI and Denies change in libido Neuro Denies syncope Psych Denies change in libido Endo Denies change in libido Physical Exam Const General: cooperative, healthy appearing, comfortable and no acute distress Orientation/consciousness: patient oriented x3 HEENT Face and sinus: Yes normal facial exam Mouth: moist mucous membranes Neck Neck: Yes normal visual inspection, Yes full ROM and Yes trachea midline Chest Chest palpation & inspection: normal inspection of the chest Resp Effort & Inspection: normal respiratory effort, able to speak in complete sentences and no respiratory distress GI Inspection: Yes normal to inspection Back/Spine/Pelvis Cervical Spine: normal cervical lordosis Thoracic/Lumbar Spine: thoracic and lumbar spine normal to inspection Skin General skin exam: no rashes or lesions noted Neuro General: patient oriented x3, gait normal, tone normal and moves all extremities Extrem General: Yes normal to inspection and Yes capillary refill normal Results AMB Urinalysis, Automated UA Leukoctes 15 Bienvenido/uL Last Edit by DIMPLE Talbot on 02/17/25 13:29 UA Nitrite Positive Last Edit by DIMPLE Talbot on 02/17/25 13:29 UA Urobilinogen 3.5 mg/dL Last Edit by DIMPLE Talbot on 02/17/25 13:2 9 UA Protein 0 mg/dL Last Edit by DIMPLE Talbot on 02/17/25 13:29 UA pH 6.0 Last Edit by Diane Hawk CCM on 02/17/25 13:29 UA Blood 0 Rishi/uL Last Edit by Diane Hawk CCM on 02/17/25 13:29 UA Specific [place] 1.010 Last Edit by DIMPLE Talbot on 02/17/25 13: 29 UA Ketone Negative Last Edit by DIMPLE Talbot on 02/17/25 13:29 UA Bilirubin 0 mg/dL Last Edit by DIMPLE Talbot on 02/17/25 13:29 UA Glucose 0 mg/dL Last Edit by Diane Hawk CCM on 02/17/25 13:29 Assessment & Plan Assessment & Plan (1) Chronic UTI (urinary tract infection): Code(s): N39.0 - Urinary tract infection, site not specified Category: Medical (2) BPH loc w urin obs/LUTS: Code(s): N40.1 - Benign prostatic hyperplasia with lower urinary tract symptoms Category: Medical Plan Six-month follow-up Orders: Orders AMB Urinalysis Automated Today Z13.9 - Encounter for screening, unspecified Patient Instructions: This note is constructed using voice recognition software. While every effort has been made to ensure accuracy comb tender errors may have been included. Imaging studies, laboratory and physical exam results were discussed and reviewed in detail. No major barriers to patient understanding were identified. An opportunity to ask questions regarding the treatment plan was provided. All questions were answered. The patient expressed understanding and agreement with the above treatment plan. The patient is aware they should contact our office by phone for worsening of their current condition or the appearance of new urologic symptoms. Compliance is encouraged with any medications and followup testing that is ordered. It is a privilege to participate in the urologic care of your patient. If you have any questions or concerns regarding treatment for the above conditions, or other urologic issues, please do not hesitate to contact me. The office tel ephone contact is [phone]. Sincerely, Dr Carlos Mishra MD, [facility] - Urology Compassionate Specialist Care for the Genitourinary System Coding Level of Care Code Est Pt Level 3 (58223) Diagnoses Chronic UTI (urinary tract infection) N39.0 BPH loc w urin obs/LUTS N40.1
--- OUTSIDE RECORDS SUMMARY | 2025-02-17 15:22 | XMS_ITS | Data Portability ---
Author Organization [place] - [facility] Address [address] [address] Care Team Providers Care Docketing Specialist Name Role Phone KRISTIN SEGAL Primary Care Provider [phone] Assessment Encounter Date Assessment Date Assessment LastModified by Organization Details LastModified Time 02/15/2024 02/15/2024 No evidence of disease on examination today. Fiberoptic examination of nasopharynx, hypopharynx and larynx was stable. Cancer surveillance in 4 months was recommended. [email or web address] Not available 02/15/2024 08:57:42 06/19/2024 06/19/2024 No evidence of disease on examination today. Fiberoptic examination of nasopharynx, hypopharynx and larynx was stable. Cancer surveillance in 4 months was recommended. I believe his description of swallowing difficulties is related to his current use of soft collar. Recommend he utilize a soft diet while he is needing the cervical support. He may then resume his regular diet. Fiberoptic laryngoscopy was benign with notation of position of hyoid into the lateral pharynx [email or web address] Not available 06/19/2024 09:57:07 10/13/2024 10/13/2024 79 year old male presents for cancer surveillance. Fiberoptic laryngoscopy today was benign. No evidence of recurrence. He will follow-up in 4 months for routine surveillance, or sooner with any concerns. May consider modified barium swallow if dysphagia persists or recurs. [email or web address] Not available 10/13/2024 10:40:04 02/09/2025 02/09/2025 No evidence of disease on examination today. Fiberoptic examination of nasopharynx, hypopharynx and larynx was stable. Cancer surveillance in 4 months was recommended. [email or web address] Not available 01/30/2025 09:29:15 Plan of Treatment Reminders Order Date Submit Date Provider Last Modified By Organization Details Last Modified Time Details Appointments Establish ed 15 2024 09:30A M KALYN RUBIO MD Not available Not available Not available Lab None recorded. Referral None recorded. Procedures None recorded. Surgeries None recorded. Imaging None recorded. Medication Orders None recorded. Patient TargetsNo targets recorded. Patient InstructionsNo instructions recorded. Reason for Referral None Reported. Results Created Date Observation Date Name Description Value Unit Range Abnormal Flag Note LastModifiedBy Organization Detail LastModifiedTime 05/01/20 24 12/29/2021 imagi ng/di agnos tic resul t No observ ation record ed. [email or web address] Not Available 14:09:06 05/01/20 24 02/08/2021 imagi ng/di agnos tic resul t No observ ation record ed. [email or web address] Not Available 14:09:11 05/01/2003/25/2021 imagi ng/di agnos tic resul t No observ ation record ed. [email or web address] Not Available 14:09:13 05/01/20 24 05/31/2021 imagi ng/di agnos tic resul t No observ ation record ed. [email or web address] Not Available 14:09:35 05/01/20 24 06/07/2021 imagi ng/di agnos tic resul t No observ ation record ed. [email or web address] Not Available 14:09:46 05/01/2006/15/2021 imagi ng/di agnos tic resul t No observ ation record ed. [email or web address] Not Available 14:09:50 05/01/2006/23/2021 imagi ng/di agnos tic resul t No observ ation record ed. [email or web address] Not Available 14:09:53 05/01/20 24 06/23/2021 imagi ng/di agnos tic resul t No observ ation record ed. [email or web address] Not Available 14:09:56 05/01/2003 0707/04/2021 imagi ng/di agnos tic resul t No observ ation record ed. [email or web address] Not Available 14:10:04 05/01/20 24 07/04/2021 imagi ng/di agnos tic resul t No observ ation record ed. [email or web address] Not Available 14:10:06 05/01/20 24 07/04/2021 audio gram No observ ation record ed. [email or web address] Not Available 14:10:52 Result Notes None recorded. Problems Name Problem SNOMED Code Status Onset Date Resolution Date Notes Provider Name and Address Organization Details Recorded Time Localize d swelling of head 22918768561 274080 Active 2020 Localize d swelling , mass and lump, head; Note: Changed from D37.05 to R22.0 ( 1 2:44 PM) , Date Diagnose d: 05/17/2021 4:26 PM (D37.05) Not Available [facility] 4 03:19:02 Follow-u p visit Active 2022 Encounte r for follow-u p examinat ion after complete d treatmen t for malignan t neoplasm ; Note: Date Diagnose d: 3 9:57 AM (Z08) Not Available [facility] 4 03:19:02 Sensorin eural hearing loss of bilatera l ears 438539560 Active 2020 Sensorin eural hearing loss, bilatera l; Note: Date Diagnose d: 07/04/20 21 1:30 PM (H90.3) Not Available [facility] 4 03:19:02 Paralysi s of larynx 88312186 Completed 202204/11/2024 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, unilater al; Note: Date Diagnose d: 3 9:57 AM (J38.01) LEFT Not Available [facility] 4 03:19:02 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 Procedures Surgical History Date Name Laterality Status Provider Name and Address Organization Details Recorded Time 02/09/2025 FOL_DP completed KALYN RUBIO MD [address] [place] [address],[address], [address], [place] - [facility] 01/30/2025 09:28:55 10/13/2024 FOL_DP completed GRICEL ALVES PA-C [address] [place] [address],[address], [address], [place] - [facility] 10/13/2024 10:39:03 06/19/2024 FOL_DP completed KALYN RUBIO MD [address] [place] [address],[address], [address], [facility] - [facility] 06/18/2024 11:08:19 02/15/2024 FOL_DP completed KALYN RUBIO MD [address] [place] [address],[address], [address], [facility] - [facility] 02/15/2024 08:57:23 Imaging Results None recorded. Procedure Notes None recorded. Medical Equipment None Reported. Allergies No known drug allergies Medications Name Sig Start Date Stop Date Status Note LastModified by Organization Details LastModified Time atorvastatin 40 mg tablet active Medication ID: [id number] Bran d Name: atorvastati n Send Method: E-Prescribe d Subs Allowed: subs [place] Medicati onGenericNa me: atorvastati n Not Available Not Available Not Available diltiazem CD 240 mg capsule,exten ded release 24 hr active Medication ID: [id number] Bran d Name: diltiazem HCl Send Method: E-Prescribe d Subs Allowed: subs [place] Medicati onGenericNa me: diltiazem HCl Not Available Not Available Not Available warfarin 5 mg tablet active Medication ID: [id number] Bran d Name: warfarin Se nd Method: E-Prescribe d Subs Allowed: subs [place] Medicati onGenericNa me: warfarin Not Available Not Available Not Available warfarin 1 mg tablet active Medication ID: [id number] Bran d Name: warfarin Se nd Method: E-Prescribe d Subs Allowed: subs [place] Medicati onGenericNa me: warfarin Not Available Not Available Not Available olmesartan 40 mg tablet active Medication ID: [id number] Bran d Name: olmesartan Send Method: E-Prescribe d Subs Allowed: subs [place] Medicati onGenericNa me: olmesartan Not Available Not Available Not Available Vitals Date Recorded Body height Body mass index (BMI) Body weight Provider Name and Address Organization Details Last Updated DateTime 10/13/2024 187.96 cm 26.7 kg/m2 86159.21 [place] Jennifer Mcclellan [place] - [facility] 10/13/2024 09:57:38 Date Recorded Body height Body mass index (BMI) Body weight Provider Name and Address Organization Details Last Updated DateTime 02/09/2025 187.96 cm 26.6 kg/m2 28304.62 [place] JOAQUIN PHILIP [place] - [facility] 02/09/2025 09:43:08 Date Recorded Body height Body mass index (BMI) Body weight Provider Name and Address Organization Details Last Updated DateTime 02/15/2024 187.96 cm 26.3 kg/m2 87336.44 [place] Paulina Garcia [place] - [facility] 02/15/2024 09:46:30 Date Recorded Body height Body mass index (BMI) Body weight Provider Name and Address Organization Details Last Updated DateTime 06/19/2024 187.96 cm 27.1 kg/m2 99316.99 [place] Garcia [place] - [facility] 06/19/2024 09:46:14 Social History None recorded. Functional Status None recorded. Mental Status None recorded. Family History Nothing Reported. Medical History No medical history recorded. Past Encounters Encounter ID Performer Location Encounter Start Date Encounter Closed Date Diagnosis/Indication Diagnosis SNOMED-CT Code Diagnosis ICD10 Code Diagnosis Note [id number] KALYN RUBIO MD [facility] [address] [address] 02/15/2024 09:30:38 02/15/2024 11:08:55 History of malignant neoplasm of hypopharynx 4609218811 9100 Z85.818 [id number] KALYN RUBIO MD [facility] [address] [address] 06/19/2024 09:23:34 06/19/2024 09:57:49 History of malignant neoplasm of hypopharynx 9320517497 9100 Z85.818 [id number] GRICEL ALVES PA-C [facility] [address] [address] 10/13/2024 09:33:21 10/13/2024 10:13:44 History of malignant neoplasm of hypopharynx 3290395100 9100 Z85.818 [id number] KALYN RUBIO MD [facility] [address] [address] 02/09/2025 09:32:08 02/09/2025 09:54:39 History of malignant neoplasm of hypopharynx 7406997291 9100 Z85.818 Health Concerns Section Related Observation LastModified by Organization Detai ls LastModified Time None Recorded Concern Status LastModified by Organization Details LastModified Time None Recorded Advance Directives Directive None Recorded Payers Insurance Date Sequence Insurance Name Policy Number Policy Kelly Covered Member ID Kelly Member ID Guarantor Name 02/08/2025 2 [facility] [id number] Josh Ortega Jr [id number] Josh Ortega Jr 02/08/2025 1 MEDICARE B-[place]: [facility] [employer] Josh Ortega Jr [id number] Josh Ortega Jr Notes Date Note Type Note Provider Name and Address Organization Details Recorded Time 02/15/2024 text/html since prior visi t had some respiratory flare related to use of nitrofurantoin for urinary issueno new concerns in H&N KALYN RUBIO MD [address], [place], [address], [place] - [facility] 02/15/2024 10:09:51 06/19/2024 text/html Primary tumor location: pyriform sinus, post cricoid SCCATumor staging: A4M5Suikxbcsz: chemo XRTDate of treatment completion: 09/16/21Oncology team: Santino Luciano since prior visit was in [facility] 05/29/2024 - now in soft collar for support, right anklenow feels food getting stuck in throat since using collar KALYN RUBIO MD [address] [facility], [place], [address], [place] - [facility] 06/20/2024 08:53:01 10/13/2024 text/html 79 year old male presents for cancer surveillance. He is followed by Dr. Rubio. Reports dysphagia has since resolved. No concerns today. Primary tumor location: pyriform sinus, post cricoid SCCATumor staging: C8M8Bihkncawv: chemo XRTDate of treatment completion: 09/16/21Oncology team: Santino Luciano MD [address] [facility] [address], [address], [place] - [facility] 10/13/2024 17:04:33 02/09/2025 text/html Primary tumor location: pyriform sinus, post cricoid SCCATumor staging: A9M8Npcetoigs: chemo XRTDate of treatment completion: 09/16/21Oncology team: Santino Luciano since [facility] fall 2023, some residual neck issues - working with PTdysphagia for solids has been improving since the accident KALYN RUBIO MD [address] [place] [address], [address], [place] - [facility] 02/09/2025 09:53:54
== END 2025-02-17 13:34 | disposition home or self-care (01) ==
LOC: HO.HUSH 13:04
PROVIDERS: PCP Internal Medicine; Visit Provider Urology
DX: N39.0 Urinary tract infection, site not specified (principal); N40.1 Benign prostatic hyperplasia with lower urinary tract symptoms; Z13.9 Encounter for screening, unspecified
CPT/HCPCS: 99213

== ENCOUNTER 2025-08-19 11:24 | Outpatient (AMB) | payer MEDICARE, SELFPAY ==
--- NOTE | 2025-08-19 11:38 | MHC.OFFVIS ---
Intake Visit Reasons: 6M PVR/UA(set) Intake Note: Reason for Visit: PVR/UA Follow Up Urology Meds: Bethanechol, Finasteride Blood Thinners: Xarelto Labs: Last PSA- 1.05 (01/05/2025) Last Culture: 02/17/2025 Imaging: None Last PVR: 380mls PVR: 172ml Supervisor Correspondence Section Required: No Accompanied by: Self / Same As Patient Allergies nitrofurantoin (From Macrobid) Allergy (Severe, Verified 08/19/25 11:53) Shortness of Breath erythromycin base Allergy (Unknown, Verified 08/19/25 11:53) Unknown Alpha 1 Pernell- Quinazolines Adverse Reaction (Mild, Verified 08/19/25 11:53) Migraine Beta-Blockers (Beta-Adrenergic Bloc Adverse Reaction (Mild, Verified 08/19/25 11:53) Migraine tamsulosin Adverse Reaction (Unknown, Verified 08/19/25 11:53) headache HPI Comments Details: Josh is a pleasant male. He is a patient of Dr. To. He is seen for the following urologic conditions - lower urinary tract symptoms - elevated PSA Moderately elevated PVR Has remain on combination finasteride bethanechol Says that he has to really take time to empty his bladder Elevated PSA and lower urinary tract symptoms Prior TURP with good effect for urinary symptoms - 10/03 [facility] laser for recurrent tissue Previously had weakness of stream incomplete emptying Laboratories - 03/31 7.3, 11/30 2.8, 06/02 2.3 Previously PSA run in 4-6 range PFSH Medical History Mitral regurgitation Myocardial infarction GERD (gastroesophageal reflux disease) Arthritis Asthma Head and neck cancer CVA (cerebral vascular accident) On anticoagulant therapy Atrial fibrillation Elevated cholesterol HTN (hypertension) Elevated PSA BPH loc w urin obs/LUTS Incomplete emptying of bladder Chronic UTI (urinary tract infection) Infective urethritis Surgical History Hx of transurethral resection of prostate Hx of heart artery stent H/O colonoscopy Hx of mitral valve repair Social History Comment: stinging Patient Tobacco Use Status: Never used Tobacco Office Procedures Post Void Residual Post Residual Void Post Void Residual (PVR): 172 [id number] Void Residual by ultrasound Results AMB Urinalysis, Automated UA Leukoctes 0 Bienvenido/uL Last Edit by Stefany Mendiola [facility] on 08/19/25 11:54 UA Nitrite Negative Last Edit by Stefany Mendiola, A on 08/19/25 11:54 UA Urobilinogen 0.2 mg/dL Last Edit by Stefany Mendiola, A on 08/19/25 11:54 UA Protein 15 mg/dL Last Edit by Stefany Mendiola, A on 08/19/25 11:54 UA pH 6.0 Last Edit by Stefany Mendiola, A on 08/19/25 11:54 UA Blood 0 Rishi/uL Last Edit by Stefany Mendiola, A on 08/19/25 11:54 UA Specific Leonard 1.020 Last Edit by Stefany Mendiola, A on 08/19/25 11:54 UA Ketone Negative Last Edit by Stefany Mendiola [facility] on 08/19/25 11:54 UA Bilirubin 0 mg/dL Last Edit by Stefany Mendiola, A on 08/19/25 11:54 UA Glucose 0 mg/dL Last Edit by Stefany Mendiola [facility] on 08/19/25 11:54 Results Reviewed Results Reviewed: Laboratory Last Values Urine pH (Auto) 6.0 08/19/25 11:44 Specific Leonard (Auto) 1.020 08/19/25 11:44 Urine Protein (Auto) 15 mg/dL 08/19/25 11:44 Glucose (UA)(Auto) 0 mg/dL 08/19/25 11:44 Urine Ketones (Auto) Negative 08/19/25 11:44 Urine Blood (Auto) 0 Rishi/uL 08/19/25 11:44 Urine Nitrite (Auto) Negative 08/19/25 11:44 Urine Bilirubin (Auto) 0 mg/dL 08/19/25 11:44 Urine Urobilinogen (Auto) 0.2 mg/dL 08/19/25 11:44 Leukocyte Esterase (Auto) 0 Bienvenido/uL 08/19/25 11:44 Assessment & Plan Assessment & Plan Orders: Orders AMB Urinalysis Automated Today N39.0 - Urinary tract infection, site not specified, Z13.9 - Encounter for screening, unspecified AMB Post Void Residual by ultrasound Today R33.9 - Retention of urine, unspecified Medications: Refilled bethanechol chloride 50 mg PO BID 180 tabs 1RF 90 days N39.0 - Urinary tract infection, site not specified, R33.9 - Retention of urine, unspecified finasteride 5 mg PO 3XW 39 tabs 1RF 90 days N13.8 - Other obstructive and reflux uropathy, N40.1 - Benign prostatic hyperplasia with lower urinary tract symptoms, R33.9 - Retention of urine, unspecified Coding CPT Codes Post Residual Void - PVR CPT Code: 49428-[id number] Void Residual by ultrasound ([id number])
== END 2025-08-19 12:10 | disposition home or self-care (01) ==
LOC: HO.HUSH 11:24
PROVIDERS: PCP Internal Medicine; Visit Provider Urology
DX: Z13.9 Encounter for screening, unspecified (principal); N39.0 Urinary tract infection, site not specified

== ENCOUNTER → 2025-08-19 11:24 | Outpatient (BNVA) | payer MEDICARE, SELFPAY | PROVIDERS: PCP Internal Medicine; Visit Provider Urology | DX: N39.0 Urinary tract infection, site not specified (principal) | CPT/HCPCS: 51798; 81003 ==